=== PATIENT | female | born 1940 | race Caucasian/White ===

== ENCOUNTER 2019-08-09 20:18 | Inpatient (IN) ==
[2019-08-09] MEDS ORDERED: NS 1,000 ML IV ONE (20:28)
--- NOTE | 2019-08-09 21:26 | Diag Imaging Result Doc PS360 ---
EXAM: CHEST-PORTABLE - 08/09/2019 HISTORY: ams TECHNIQUE: Portable chest COMPARISON: 11/06/2018 FINDINGS: Heart size appears borderline enlarged. There are sternal wires from previous surgery again seen. There is been interval insertion of transvenous cardiac pacemaker. There is mild bilateral interstitial scarring. The lungs appear grossly clear of acute changes. There is no pleural effusion or pneumothorax identified. IMPRESSION: Borderline cardiomegaly. Mild interstitial scarring. No other evidence of acute disease. Electronically signed by Rush Handy 08/09/2019 9:24 PM
[2019-08-09] MEDS ORDERED: MAXIPIME 2 GM in NS 100 ML IV ONE (21:35)
--- NOTE | 2019-08-09 21:44 | EKG Report ---
Test Performed on : 08/09/2019 9:42:06 PM Test Reason : ams Blood Pressure : / mmHG Vent. Rate : 081 BPM Atrial Rate : 081 BPM P-R Int : 162 ms QRS Dur : 210 ms QT Int : 500 ms P-R-T Axes : 030 -73 069 degrees QTc Int : 580 ms Atrial-sensed ventricular-paced rhythm Abnormal ECG When compared with ECG of 26-SEP-2015 21:12, Electronic ventricular pacemaker has replaced Sinus rhythm. Unconfirmed Result
[2019-08-09 21:48] LABS: BASO# 0.02 X1000 (0.0-0.2); BASO% 0.2 % (0.0-0.8); EOS# 0.04 X1000 (0.0-0.7); EOS% 0.4 % (0.0-10.0); HEMATOCRIT 30.5 % (37.0-47.0); HEMOGLOBIN 9.5 g/dL (12.0-16.0); IMM GRAN# 0.07 X1000 (0.0-0.04); IMM GRAN% 0.6 % (0.0-0.5); LYMPH% 7.4 % (20.5-51.1); MCHC 31.1 g/dL (33-37); MCV 99.7 FL (81-99); MONO# 0.75 X1000 (0.11-0.59); MONO% 6.9 % (1.7-9.3); MPV 10.3 FL (7.4-10.4); NEUT# 9.12 X1000 (1.4-6.5); NEUT% 84.5 % (42.2-75.2); PLT 219 X1000 (130-400); RBC 3.06 XMIL (4.2-5.4); RDW 14.5 % (11.5-14.5)
[2019-08-09 21:59] LABS: INR 1.38; PROTIME 17.2 Seconds (11.0-16.0)
[2019-08-09 22:00] LABS: PTT 34.5 Seconds (22.3-41.8)
[2019-08-09 22:19] LABS: ALB/GLOB RATIO 1.4; ALBUMIN 3.6 g/dL (3.5-5.0); CALCIUM 8.7 mg/dL (8.8-10.2); CREATININE 1.2 mg/dL (0.5-0.9); POTASSIUM 4.3 mmol/L (3.5-5.1); TOTAL BILIRUBIN 0.53 mg/dL (0.20-1.00); TOTAL PROTEIN 6.1 g/dL (6.3-8.3)
[2019-08-09 22:25] LABS: URINE SOURCE CATH
[2019-08-09 22:47] LABS: BILIRUBIN URINE NEGATIVE (NEGATIVE); BLOOD URINE SMALL (NEGATIVE); COLOR YELLOW; GLUCOSE URINE NEGATIVE (NEGATIVE); KETONE URINE NEGATIVE (NEGATIVE); LEUKOCYTES URINE LARGE (NEGATIVE); NITRITE URINE POSITIVE (NEGATIVE); PH URINE 5.5; PROTEIN URINE TRACE mg/dL (NEGATIVE); SP GRAVITY URINE 1.015; TURBIDITY URINE HAZY (CLEAR); UROBILINOGEN URINE NORMAL (NORMAL)
[2019-08-09 22:50] LABS: UR EPITHELIAL CELLS <10 /HPF (<10); URINE BACTERIA 4+ /HPF; URINE RBC <10 /HPF (<10); URINE WBC TNTC /HPF (<10)
[2019-08-09] MEDS ORDERED: VANCOMYCIN IV PER PHARMACY MISC SCH (23:47)
[2019-08-09] MEDS ORDERED: XANAX PO PRN (23:47)
[2019-08-09] MEDS ORDERED: TYLENOL PO PRN (23:47)
[2019-08-10] MEDS: NORVASC PO SCH ×2 (00:19→21:41)
[2019-08-10] MEDS: COREG PO SCH ×3 (00:19→21:41)
[2019-08-10] MEDS ORDERED: VANCOMYCIN 2,100 MG in NS 500 ML IV ONE (01:00)
--- NOTE | 2019-08-10 01:16 | HISTORY AND PHYSICAL ---
PRIMARY CARE PHYSICIAN: Dr. Anthony Sánchez CHIEF COMPLAINT: Alteration of mental status/fever. HISTORY OF PRESENT ILLNESS: A 79-year-old white female with a complicated past medical history presents for evaluation of above-mentioned symptoms. Pertinent history of present illness began last week. On Sunday, patient was admitted to [facility] and taken for an elective TAVR intervention. The surgical intervention was deemed successful. Unfortunately, per family report she experienced an arrhythmia requiring a temporary pacemaker implantation. This remained through the weekend. In addition, patient also experienced an occlusion of an unknown vessel of the right lower extremity requiring angioplasty. Over the weekend, patient states she did reasonably well. A permanent pacemaker was placed on Sunday. She was discharged home on Sunday. Since being home, patient states she has felt reasonably well. She has noted a decrease in her shortness of breath since treatment of her aortic valve. She also has noted decreasing right lower extremity pain. She denied chest pains or palpitations associated. Home Health was initiated on Sunday. The patient did very well until this morning. At that time, patient awoke with a decrease in appetite. She complained of some pacemaker site pain, but no additional symptoms. By afternoon, patient developed chills requiring multiple blankets to keep warm. Her daughter took her temperature and it returned at 102.4. Thereafter, she noticed increasing work of breathing and some intermittent wheezing. Oxygen saturation was evaluated and returned in the 80s. Home O2 was placed. In addition to patient's pulmonary symptoms, a significant alteration of mental status was noted. I was contacted via phone. The patient's symptoms were described and she was instructed to go to the emergency department immediately. Upon arrival, a full evaluation was pursued. Urinalysis returned abnormal. Examination was also significant for a hematoma versus abscess to the right groin. The patient will be admitted to the hospital for full evaluation and management of each of these conditions. Of note, patient has a longstanding history of constipation which has been unchanged. She denies hematochezia, melena, diarrhea. She has chronic urinary incontinence. She denies dysuria, hematuria, or pyuria. She has, however, had some low back pain. She denies cough, congestion, or sinus tenderness. PAST MEDICAL HISTORY: 1. History of acute renal failure associated with congestive heart failure in 2017. 2. Chronic anemia secondary to renal failure. 3. Aortic stenosis status post TAVR. 4. Atrial fibrillation, treated successfully with amiodarone. 5. History of right breast cancer, status post right mastectomy in 2015. 6. Chronic left bundle branch block. 7. Ischemic heart disease status post coronary artery bypass grafting in 2006 and stent placement in 2010. 8. Congestive heart failure, systolic. 9. Depression. 10. Type 2 diabetes. 11. Chronic lower extremity edema. 12. Reflux disease. 13. Hypertension. 14. Hyperlipidemia. 15. Chronic hypoxemia requiring nocturnal oxygen. 16. Mild cognitive impairment. 17. Nephrolithiasis. 18. Obesity. 19. Osteoarthritis of bilateral knees. 20. History of a pancreatic cyst. 21. Postmenopausal state. 22. Hypothyroidism. 23. History of retinal artery occlusion in September 2015. 24. Urinary incontinence. 25. History of venous insufficiency. CURRENT MEDICATIONS: 1. Alprazolam 0.25 mg every 6 hours as needed. 2. Amiodarone 200 mg daily. 3. Amlodipine 5 mg at bedtime. 4. Anastrozole 1 mg daily. 5. Aspirin 81 mg daily. 6. Carvedilol 12.5 mg twice daily. 7. Clonazepam 0.5 mg at bedtime. 8. Iron sulfate 325 mg daily. 9. Folic acid 1 mg daily. 10. Lasix 40 mg daily as needed. 11. Glimepiride 4 mg daily. 12. Imdur 30 mg daily. 13. Levothyroxine 125 mcg 2 tablets daily. 14. Lisinopril 10 mg daily. 15. Pristiq 100 mg daily. 16. Tramadol 50 mg twice daily. 17. Vitamin D3 200 units daily. 18. Eliquis 5 mg twice daily. 19. Vitamin B12 1000 mcg daily. ALLERGIES: Patient states she is allergic to Crestor, Lipitor, lovastatin, penicillin, pravastatin, sulfa, and Zocor. SOCIAL HISTORY: Patient denies tobacco, alcohol or illicit drug use. She is a homemaker. She is unable to exercise routinely. FAMILY HISTORY: Patient's father passed at age 80 secondary to unknown causes. He had a history of coronary artery disease. Patient's mother passed at age 68 secondary to complications of an acute myocardial infarction. The patient's brother passed at age 63 secondary to complications of an abdominal aortic aneurysm. He had a history of lung cancer. A sister passed at age 80 secondary to complications of congestive heart failure. REVIEW OF SYSTEMS: A 12 point review of systems was performed. Pertinent positives and negatives are noted in the history present illness. PHYSICAL EXAMINATION: VITAL SIGNS: Temperature 100.8 degrees, heart rate 79, respirations 18, blood pressure is 208/97. O2 saturation 98% on 6 L of oxygen. GENERAL: Chronically ill appearing, confused, but no acute distress. HEENT: Normocephalic, atraumatic. Pupils equal, round, react to light. Extraocular muscles intact. Sclerae anicteric. [place] conjunctivae. Oral and nasopharynx clear without exudate. NECK: Supple. No lymphadenopathy. No thyromegaly. No bruits auscultated. CARDIOVASCULAR: Regular rate and rhythm. No significant murmurs, rubs, or gallops. PULMONARY: Minimal crackles at bases. Adequate air movement. ABDOMEN: Soft, nontender, nondistended. Positive bowel sounds. EXTREMITIES: Moves all extremities well. No significant clubbing or cyanosis. 1+ lower extremity edema bilaterally. NEUROLOGIC: Cranial nerves 2-12 grossly intact. Motor and sensory grossly intact. PSYCHOLOGIC: Patient is intermittently confused. DERMATOLOGIC: Evaluation reveals a large hematoma versus abscess to the right groin at the incision site with minimal drainage. LABORATORY DATA: White blood cell count 10.8, hemoglobin 9.5, hematocrit 30.5, platelet count is 219,000. PT 17.2, INR is 1.38. PTT 34.5. Sodium 143, potassium 4.3, chloride 103, bicarbonate 24, BUN 20, creatinine 1.2, glucose 140, calcium 8.7, total bilirubin 0.53, total protein 6.1, albumin 3.6, alkaline phosphatase 150, AST 26, ALT 24. CK total 45, troponin 0.031, proBNP 1791. Plasma lactate 1.9. Urinalysis reveals positive nitrite, large leukocytes, small amount of blood, too many to count white blood cells, 4+ bacteria. ASSESSMENT AND PLAN: A 79-year-old white female with a complicated past medical history as noted presents for evaluation of fevers and mental status change. Symptoms are in the setting of recent [place] TAVR intervention and subsequent pacemaker implantation. The patient will be admitted to the hospital for full evaluation and management. 1. Admit to ICU/ICU step-down. 2. Fever. Differential diagnosis is quite broad. Chest x-ray did not reveal a significant pneumonia. However, patient does have some increasing oxygen requirements suggesting a possibility of occult disease. Additionally, patient does have a significant urinary tract infection as well as examination concerning for possible right groin abscess at the access site for her TAVR. We will check blood cultures, urine cultures, and sputum cultures. We will empirically place patient on cefepime and vancomycin therapy. We will aggressively manage with the knowledge that patient is at high risk for complications associated with her pacemaker or TAVR should she become bacteremic. 3. Right groin abscess versus hematoma. This is at the access site for patient's TAVR. We will start patient on cefepime and vancomycin. As described above. We will refer patient for ultrasound evaluation. We will determine if surgical intervention is appropriate. 4. Alteration of mental status. This likely is associated with her febrile illness. There are no focal findings. We will treat as described above. Should this persist, we will need to consider CT scan evaluation. 5. Hypoxia. This is quite curious. Chest x-ray returned negative. As above, I cannot fully rule out an occult pneumonia, however, this seems less likely. We will place patient on oxygen per protocol. We will follow this. 6. Aortic stenosis. Patient is postoperative day #8 TAVR. We will consult Cardiology to confirm no further intervention is warranted. 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 7. Pacemaker implantation. Patient is postoperative day #5. Patient does have significant ecchymosis associated, but I do not appreciate any fluid collections. We will remain aware. We will follow patient on telemetry. 8. Profound weakness. The patient is unable to stand at present time. We will treat patient's acute issues as described above. We will plan to initiate physical therapy once able. I anticipate patient will require rehabilitation at discharge. 9. Hypertension. We will continue patient on home medications. 10. Diabetes. We will place patient on sliding scale insulin. 11. Anemia. We will remain aware. 12. Fluid, electrolytes, nutrition. We will monitor electrolytes. Normal saline at 50 mL an hour. Diabetic diet. 13. Prophylaxis. Patient will be continued on Eliquis therapy. cc: Anthony Sánchez MD MTDD
[2019-08-10] MEDS: NS 1,000 ML IV SCH ×2 (01:21→11:32)
--- NOTE | 2019-08-10 03:06 | EKG Report ---
Test Performed on : 08/10/2019 01:58:03 AM Test Reason : Bradycardia with pacemaker Blood Pressure : / mmHG Vent. Rate : 062 BPM Atrial Rate : 062 BPM P-R Int : 170 ms QRS Dur : 212 ms QT Int : 568 ms P-R-T Axes : 032 -73 055 degrees QTc Int : 576 ms AV dual-paced rhythm with frequent ventricular-paced complexes Abnormal ECG When compared with ECG of 09-AUG-2019 21:42, (Unconfirmed) Vent. rate has decreased BY 19 BPM Confirmed by [place] BOWSER, Mark ([id number]) on 08/12/2019 8:50:58 AM
[2019-08-10] MEDS: ATROVENT NEB INH SCH ×7 (03:14→23:19)
[2019-08-10] MEDS: HUMALOG SUBQ SCH ×4 (06:40→21:44)
[2019-08-10 08:51] LABS: BASO# 0.02 X1000 (0.0-0.2); BASO% 0.1 % (0.0-0.8); EOS# 0.01 X1000 (0.0-0.7); EOS% 0.1 % (0.0-10.0); HEMATOCRIT 27.7 % (37.0-47.0); HEMOGLOBIN 8.4 g/dL (12.0-16.0); IMM GRAN# 0.04 X1000 (0.0-0.04); IMM GRAN% 0.3 % (0.0-0.5); LYMPH# 2.04 X1000 (1.2-3.4); LYMPH% 13.5 % (20.5-51.1); MCH 30.9 PG (27-31); MCHC 30.3 g/dL (33-37); MCV 101.8 FL (81-99); MONO# 0.94 X1000 (0.11-0.59); MONO% 6.2 % (1.7-9.3); NEUT# 12.03 X1000 (1.4-6.5); NEUT% 79.8 % (42.2-75.2); PLT 195 X1000 (130-400); RBC 2.72 XMIL (4.2-5.4); RDW 14.8 % (11.5-14.5); WBC 15.08 X1000 (4.8-10.8)
[2019-08-10] MEDS ORDERED: ASPIRIN PO SCH (09:00)
[2019-08-10] MEDS ORDERED: NS 500 ML IV ONE (09:24)
[2019-08-10 09:44] LABS: ALB/GLOB RATIO 0.9; ALBUMIN 2.8 g/dL (3.5-5.0); CALCIUM 8.4 mg/dL (8.8-10.2); CREATININE 1.4 mg/dL (0.5-0.9); POTASSIUM 4.5 mmol/L (3.5-5.1); TOTAL BILIRUBIN 0.56 mg/dL (0.20-1.00); TOTAL PROTEIN 5.9 g/dL (6.3-8.3)
[2019-08-10] MEDS: VITAMIN D PO SCH (10:29)
[2019-08-10] MEDS: ULTRAM PO SCH ×2 (10:30→21:42)
[2019-08-10] MEDS: IMDUR PO SCH (10:33)
[2019-08-10] MEDS: ARIMIDEX PO SCH (10:33)
[2019-08-10] MEDS: CORDARONE PO SCH (10:34)
[2019-08-10] MEDS: FOLIC ACID PO SCH (10:34)
[2019-08-10] MEDS: ELIQUIS PO SCH ×2 (10:34→21:41)
[2019-08-10] MEDS: FERROUS SULFATE PO SCH (10:34)
--- NOTE | 2019-08-10 10:45 | Diag Imaging Result Doc PS360 ---
EXAM: US NON VASC EXTREMITY LIMITED HISTORY: Right groin hematoma vs. abscess v. Pseudoaneurysm TECHNIQUE: Right inguinal ultrasound COMPARISON: None. FINDINGS: There is a complex irregular area in the right inguinal region near the incision. This measures 2.1 x 5.7 x 3.7 cm. There is internal debris. The peripherally is irregular. Only one image shows flow near this. IMPRESSION: Irregular collection in the right inguinal region likely representing a hematoma or seroma Electronically signed by Sekou Sy 08/10/2019 10:42 AM
[2019-08-10] MEDS: PRINIVIL PO SCH (10:46)
[2019-08-10] MEDS ORDERED: ASPIRIN PO ONE (11:21)
[2019-08-10] MEDS: PRISTIQ ER PO SCH (11:31)
[2019-08-10] MEDS: MAXIPIME 2 GM in NS 100 ML IV SCH ×2 (11:32→23:37)
--- NOTE | 2019-08-10 12:35 | Diag Imaging Result Doc PS360 ---
EXAM: CT ABDOMEN/PELVIS W/O CONTRAST HISTORY: right groin abscess s/p TAVR procedure TECHNIQUE: CT abdomen and pelvis without contrast COMPARISON: 05/19/2019 FINDINGS: Trace pleural fluid. There is vascular distention and cardiomegaly. Sternal wires are present. Milk of calcium or sludge within the gallbladder similar to the prior exam. No focal hepatic abnormality identified on this noncontrasted exam. There are scattered splenic granuloma. No inflammation about the pancreas. Tiny pancreatic cyst is unchanged. Normal adrenal glands. There is a nonobstructing left lower pole renal stone. No hydronephrosis. No aortic aneurysm. Prominent atherosclerosis. There is a large amount of stool throughout the colon. No bowel obstruction. Normal appendix. No abscess. No ascites. A Ye catheter is in the urinary bladder. The uterus is been removed. No pelvic mass. There is edema and subcutaneous air in the right inguinal region. No well-defined fluid collection. IMPRESSION: 1.Cardiomegaly with pulmonary edema and trace pleural fluid 2.Sludge or milk of calcium within the gallbladder 3.Nonobstructing left renal stone 4.Prominent atherosclerosis 5.Prominent constipation 6.Hysterectomy 7.Subcutaneous air and edema in the right inguinal region apparently due to recent procedure. No well-defined fluid collection or abscess. This exam was performed using automated exposure control, adjustment of mA or kV according to patient size, and/or use of iterative reconstruction technique. Electronically signed by Sekou Sy 08/10/2019 12:32 PM
[2019-08-10] MEDS: SYNTHROID PO SCH (12:42)
--- NOTE | 2019-08-10 12:45 | PROGRESS NOTE ---
DATE: 08/10/2019 SUBJECTIVE: The patient was admitted yesterday with alteration of mental status and fever. Full evaluation was pursued. Laboratory data returned significant for an abnormal urinalysis. Examination was concerning for a right groin abscesses in the setting of recent TAVR. The patient was placed on broad-spectrum antibiotics, including cefepime and vancomycin therapy. She tolerated this well. This morning, upon my arrival, the patient's mentation had demonstrated improvement. She continued to have some discomfort in the right groin region. Evaluation revealed a persistent firmness with associated serous drainage. Ultrasound was performed, which suggested an irregular collection in the right inguinal region, likely representing a hematoma or seroma. Dr. Edmondson and Dr. Muro were consulted. Upon evaluation by Dr. Muro, the incision was opened, and approximately 200 to 300 mL of serous fluid was removed, suggesting a seroma. Underlying infection could not be ruled out. Otherwise, the patient's fever has defervesced over the first 12 hours of hospitalization. She denies nausea, vomiting, shortness of breath, or chest discomfort. She continues to require oxygen to maintain adequate saturations. OBJECTIVE: Vital Signs: T-max 100.8 degrees, heart rate 60 to 79, respirations 17 to 24, blood pressure 99 to 208/43 to 97. General: Chronically ill appearing. No acute distress. Cardiovascular: Regular rate and rhythm. No significant murmurs, rubs, or gallops. Pulmonary: Clear to auscultation anteriorly. Abdomen: Soft, nontender, nondistended. Positive bowel sounds. Extremities: Moves all extremities well. There is 1+ to 2+ lower extremity edema bilaterally. Dermatologic: Reveals a right groin wound with serous discharge. LABORATORY DATA: White blood cell count 15.08, hemoglobin 8.4, hematocrit 27.7, platelet count 195,000. Sodium 144, potassium 4.5, chloride 105, bicarb 24, BUN 25, creatinine 1.4, glucose 133, calcium 8.4. Total bilirubin 0.56, total protein 5.9, albumin 2.8, alkaline phosphatase 121, AST 21, ALT 20. ASSESSMENT AND PLAN: 1. Fever. At this point, likely etiologies include urinary tract infection and infected seroma. I cannot fully rule out underlying pneumonia as well. We will continue the patient on cefepime and vancomycin therapy. Blood cultures, urine cultures, and sputum cultures have been pursued. We will check a wound culture as well. We will request records from [facility] to confirm that no surgical hardware is present in the right groin. 2. Right groin abscess versus seroma. As above, the patient had 200 to 300 mL drained this morning. We will check a wound culture. We will continue cefepime and vancomycin. I appreciate Dr. Muro's consultation. 3. Alteration of mental status. This likely was associated with her febrile illness. Today, she is back to baseline. We will continue treatment of potential infections as described above. 4. Hypoxia. Chest x-ray returned without significant abnormality. As above, I cannot fully rule out an occult pneumonia. However, she does have 2 additional etiologies for infection. We will continue oxygen per protocol. We will encourage aspiration precautions and incentive spirometry. 5. Aortic stenosis. The patient is postoperative day #9, transcatheter aortic valve replacement. I appreciate Dr. Edmondson's consultation. At this point, she does appear to have a functioning valve. She does, however, have an operative complication as described above. 6. Pacemaker implantation. The patient is postoperative day #6. This also appears to be functioning appropriately. We will continue to follow the patient with telemetry. 7. Profound weakness. This is of significant consequence. With her current seroma, she is unable to ambulate. I anticipate that the patient will require rehabilitation at discharge. We will plan to initiate physical therapy once able. 8. Hypertension. We will continue the patient on home medications. 9. Diabetes. We will continue the patient on sliding scale insulin. 10. Anemia. The patient's hemoglobin and hematocrit have dropped from yesterday. Certainly, this may be dilutional. I cannot rule out an underlying bleed associated with her previous surgery as well. We will recheck levels in the morning. We will follow this. We will remain aware that she is being treated with Eliquis therapy. 11. Disposition. At this point, the patient continues to require detention care in a hospital setting. We will plan discharge home once appropriate. cc: Anthony Sánchez MD
--- NOTE | 2019-08-10 14:18 | GENERAL SURGERY CONSULTATION ---
DATE: 08/10/2019 REASON FOR CONSULTATION: Drainage from the right groin wound. HISTORY OF PRESENT ILLNESS: This is a 79-year-old female who is recently status post TAVR procedure at [facility]. Apparently, there was some vascular issue postoperatively requiring intervention to the right lower extremity. She also had a pacemaker placed. She was discharged. She develops fever, increased work of breathing, and fatigue. She was noted to have drainage from her right groin, and I was consulted. She did not have any pain in her right leg. PAST MEDICAL HISTORY: 1. Aortic stenosis, status post TAVR procedure. 2. Atrial fibrillation. 3. Arrhythmia with pacemaker placed. 4. Ischemic heart disease, status post coronary artery bypass grafting and stent placement. 5. Congestive heart failure. 6. Depression. 7. Hypertension. 8. Diabetes. 9. Hyperlipidemia. 10. Chronic edema. 11. Chronic hypoxia. 12. Cognitive impairment. 13. Obesity. 14. Hypothyroidism. 15. Renal artery occlusion. 16. Urinary incontinence. MEDICATION LIST: Includes 19 medications, and Eliquis, as well as Lasix and several antiarrhythmics. SOCIAL HISTORY: No current tobacco, alcohol, or drugs. FAMILY HISTORY: Reviewed. She does have cardiac disease in her family. REVIEW OF SYSTEMS: A 10-point review of systems is negative other than what is mentioned in her HPI. OBJECTIVE: Vital Signs: She is afebrile, pulse 60, blood pressure 150/62, oxygen saturation 99% on 3 L. General: She is alert, chronically ill-appearing, but in no acute distress. HEENT: No scleral icterus. No cervical mass. Cardiovascular: Normal rate. Pulmonary: No increased work of breathing. Abdomen: Obese, soft, nontender. Integument: Warm, dry. Peripheral Vascular: She has bilateral lower extremity, but otherwise well perfused. Musculoskeletal: She has a right groin incision that is draining murky serous fluid from the medial aspect of her incision. I did not see any pulsatile masses. No bleeding. Psychiatric: Appropriate affect. Neurologic: Generalized weakness. IMAGING AND LABORATORY DATA: White count 15, hematocrit 27. Creatinine is 1.4, glucose is mildly elevated. LFTs are normal, with the exception of a mild elevation of alkaline phosphatase. She does have leukocytes and nitrates noted on UA. I reviewed a lower extremity ultrasound that shows an irregular fluid collection, but no evidence of Doppler flow to suggest pseudoaneurysm. ASSESSMENT AND PLAN: A 79-year-old female status post transcatheter aortic valve replacement procedure within the past week. She had some vascular intervention, presumably in her right lower extremity, but we are unclear of the details of this. I drained several hundred milliliters of purulent serous fluid from her right groin, and feel that this is adequately drained at this time. We are attempting to obtain operative records. I do worry that she has prosthetic material that would be infected. She is on appropriate antibiotics. Will continue to follow along. cc: MD Anthony Sarmiento MD MTDD
--- NOTE | 2019-08-10 17:01 | CARDIOLOGY CONSULTATION ---
DATE: 08/10/2019 REQUESTING SERVICE: Dr. Anthony Sánchez. REASON: Patient just had a TAVR procedure, possibly vascular complication of the right groin postprocedure. HISTORY: Mrs. Bazan is a 79-year-old female who is established patient of Dr. Palomo Anne from the [facility]. She had been referred to the [facility] service for TAVR. The patient underwent that procedure on August 02. Following the procedure, she required a pacemaker implantation. Also the patient the day after the procedure complained of having a numb right leg. It was essentially paralyzed. They had to take her emergently to the OR to re-perfuse the right femoral vessels. Apparently, the right femoral artery was completely clotted off. After those procedures were carried out, she was discharged home I believe on August 05 or . Since then, the patient while being at home, developed chills, fever, and mental status changes with confusion/delirium and she had to be brought to the emergency room emergently last night at 8 p.m. or 8:30 p.m. They did a chest x-ray that showed borderline cardiomegaly, mild interstitial scarring. They did an EKG that shows activity of a dual-chamber pacemaker. They did blood work that showed a white cell count of 10,800 and then subsequently 15,080. Her hemoglobin initially 9.5, then has dropped to 8.4%. The patient has been placed on antibiotics because of suspected infection. She complained of swelling and pain of the right groin and Dr. Sánchez noted that there was some leakage of yellowish fluid off of the wound of the right groin. The patient at this time has already been evaluated by Dr. Brenden Muro who has drained what appears to be a seroma of the right femoral access site and the patient is already on antibiotics. She has been on antibiotics since last night and this morning or this afternoon she is mentating normally. Her daughter is at the bedside. PAST HISTORY: Positive for coronary heart disease. She has aortic stenosis that was just treated. She also has a history of paroxysmal atrial fibrillation. She has hypertension, hyperlipidemia. She is almost morbidly obese and has significantly impaired functional status because of chronic back pain and chronic knee pain. She has acid reflux and diabetes mellitus type 2. SURGICAL HISTORY: Prior CABG in 2006. Stent in 2010. Also Positive for the recent TAVR which became complicated by the occlusion of the right femoral artery requiring emergency surgery. Then she received a dual- chamber pacemaker. She also has had issues with kidney stones in the past. HOME MEDICATIONS: At the time of this admission is a long list including amiodarone 200 mg daily, anastrozole 1 mg daily, apixaban 5 mg twice a day, aspirin 81 daily, carvedilol 12.5 twice a day, vitamin D3 2000 units daily, clonazepam 0.5 mg daily, Pristiq ER 100 mg daily, furosemide 40 mg daily, ferrous sulfate 325 daily, folic acid 1 mg daily, levothyroxine 125 mcg daily, lisinopril 40 mg once a day, VESIcare, tramadol, Co-Q10. ALLERGIES: She is allergic to penicillin, sulfa drugs and Levaquin. REVIEW OF SYSTEMS: She has significantly impaired functional capacity. Also, she has cognitive impairment. She is not having any chest pains at this time. The aortic stenosis has been followed periodically by Dr. Anne. Of note, a heart catheterization that was performed in December 2016 that is available for review in the [facility] image system indicates that her mammary graft to LAD was patent. Vein graft to right coronary artery was patent and a vein graft to what appears to be a diagonal branch of the LAD was also patent. Her circumflex system was patent without stenosis. Her LAD was occluded. Her right coronary artery was occluded. EF 2-1/2 years ago was 50% with apical hypokinesis. PHYSICAL EXAMINATION: Blood pressure 150/62, temperature 97.8 degrees, pulse 60, respirations 18. She is awake, follows commands, very pale. She has a bruise on the right side of the chest, also around the left side where the pacemaker is. This is a fair amount of ecchymosis. She has significant edema of the thighs, especially the right thigh. She is morbidly obese.Chest: Shows diminished breath sounds without obvious rales. Heart: Sounds are regular and rhythmic. She does have a systolic murmur over aortic area of about 2/6. Abdomen: Obese. Pulses distally are palpable, diminished. Neurological: Follows commands. Moves 4 extremities. IMPRESSION: 1. Patient who has undergone successful transcatheter aortic valve replacement at [facility] about 8 days ago complicated by the development of advanced heart block requiring DDD pacemaker. 2. 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 3. Seroma of the right femoral access site. 4. Morbid obesity. 5. Hypertension. 6. Diabetes mellitus type 2. 7. Hypothyroidism. RECOMMENDATIONS: From a cardiac viewpoint, I really do not have any further recommendations. The patient seems to be stable. I would suggest to consult Infectious Disease and let vascular surgery follow the patient closely since this is a vascular complication. Upon discharge, the patient already has an appointment to see the [facility] team and also she has an appointment to follow up with the [facility] [facility] in [place]. cc: MD Anthony Soto MD MTDKelby
[2019-08-10] MEDS: KLONOPIN PO SCH (21:40)
[2019-08-11] MEDS: VANCOMYCIN 1,400 MG in NS 250 ML IV SCH (00:27)
[2019-08-11] MEDS: NS 1,000 ML IV SCH ×3 (01:23→15:42)
[2019-08-11] MEDS: ATROVENT NEB INH SCH ×6 (03:27→22:52)
[2019-08-11 06:30] LABS: BASO# 0.01 X1000 (0.0-0.2); BASO% 0.1 % (0.0-0.8); EOS# 0.14 X1000 (0.0-0.7); EOS% 1.9 % (0.0-10.0); HEMATOCRIT 23.6 % (37.0-47.0); HEMOGLOBIN 7.2 g/dL (12.0-16.0); IMM GRAN# 0.03 X1000 (0.0-0.04); IMM GRAN% 0.4 % (0.0-0.5); LYMPH# 1.35 X1000 (1.2-3.4); LYMPH% 18.4 % (20.5-51.1); MCHC 30.5 g/dL (33-37); MCV 101.7 FL (81-99); MONO# 0.37 X1000 (0.11-0.59); MONO% 5.1 % (1.7-9.3); MPV 10.4 FL (7.4-10.4); NEUT# 5.42 X1000 (1.4-6.5); NEUT% 74.1 % (42.2-75.2); PLT 150 X1000 (130-400); RBC 2.32 XMIL (4.2-5.4); RDW 14.7 % (11.5-14.5); WBC 7.32 X1000 (4.8-10.8)
[2019-08-11 06:40] LABS: ALB/GLOB RATIO 0.9; ALBUMIN 2.6 g/dL (3.5-5.0); CALCIUM 8.3 mg/dL (8.8-10.2); CREATININE 1.4 mg/dL (0.5-0.9); POTASSIUM 3.9 mmol/L (3.5-5.1); TOTAL BILIRUBIN 0.38 mg/dL (0.20-1.00); TOTAL PROTEIN 5.6 g/dL (6.3-8.3)
[2019-08-11] MEDS: HUMALOG SUBQ SCH ×4 (07:07→20:35)
[2019-08-11] MEDS: ULTRAM PO SCH ×2 (08:47→20:34)
[2019-08-11] MEDS: ARIMIDEX PO SCH (08:47)
[2019-08-11] MEDS: PRISTIQ ER PO SCH (08:48)
[2019-08-11] MEDS: FERROUS SULFATE PO SCH (08:48)
[2019-08-11] MEDS: VITAMIN D PO SCH (08:48)
[2019-08-11] MEDS: COREG PO SCH ×2 (08:48→20:35)
[2019-08-11] MEDS: ASPIRIN EC PO SCH (08:48)
[2019-08-11] MEDS: SYNTHROID PO SCH (08:48)
[2019-08-11] MEDS: ELIQUIS PO SCH ×2 (08:48→20:35)
[2019-08-11] MEDS: FOLIC ACID PO SCH (08:48)
[2019-08-11] MEDS: CORDARONE PO SCH (08:48)
[2019-08-11] MEDS ORDERED: ASPIRIN EC PO SCH (09:00)
[2019-08-11] MEDS: PRINIVIL PO SCH (11:17)
[2019-08-11] MEDS: MAXIPIME 2 GM in NS 100 ML IV SCH ×2 (11:17→23:05)
[2019-08-11] MEDS: IMDUR PO SCH (11:17)
--- NOTE | 2019-08-11 20:28 | PROGRESS NOTE ---
DATE: 08/11/2019 SUBJECTIVE: Upon my arrival this morning, patient stated she felt reasonably well. Mental status remained at baseline. She continued to have considerable fatigue. Through the day today, patient denies significant symptoms. She was assisted, although with significant help, to a chair this evening. Her p.o. intake remains marginal. There has been no evidence of fevers, chills, nausea, vomiting, shortness of breath, or chest discomfort. She continues to have some serous drainage from her right groin incision. OBJECTIVE: Vital signs: T-max 98.3 degrees, heart rate 62 to 68, respirations 14 to 25, blood pressure 115 to 168 over 49 to 59. General: Chronically ill appearing, no acute distress. Cardiovascular: Regular rate and rhythm. No significant rubs or gallops. 3/6 systolic murmur noted at the right upper sternal border. Pulmonary: Clear to auscultation. Abdomen: Soft, nontender, and nondistended. Positive bowel sounds. Extremities: Moves all extremities well. No significant clubbing, cyanosis, or edema. Dermatologic: Evaluation reveals no evidence of rash. Right groin incision is dressed. LABORATORY DATA: White blood cell count 7.32, hemoglobin 7.2, hematocrit 23.6, platelet count 150,000. Sodium 143, potassium 3.9, chloride 109, bicarb 24, BUN 30, creatinine 1.4, glucose 68, calcium 8.3, total bilirubin 0.3, total protein 5.6, albumin 2.6, alkaline phosphatase 95, AST 16, ALT 16. ASSESSMENT AND PLAN: 1. Fever. The patient's urine culture has revealed a gram-negative osman. Culture from the seroma also has revealed a gram-negative osman. At this point, with improvement in her condition, I suspect we have adequate coverage with cefepime and vancomycin therapy. We will continue each of these and follow cultures and determine if changing medications is most appropriate. 2. Right groin abscess versus seroma. As previously noted, patient had 200 to 300 mL drained yesterday morning. Wound cultures are pending as described above. I appreciate Dr. Muro's consultation. She continues to have some drainage at this site currently. 3. Alteration of mental status. Patient has achieved resolution. This likely was a consequence of her underlying infection. 4. Hypoxia. We will continue patient on oxygen per protocol. We will encourage incentive spirometry and aspiration precautions. 5. Aortic stenosis. Patient is postoperative day #10 transcatheter aortic valve replacement. Thus far, there has been no evidence of cardiac complications. She has had a complication with the right groin seroma as noted above. 6. Pacemaker implantation. Patient is postoperative day #7. This continues to appear to be functioning appropriately. 7. Profound weakness. This is significant. The patient required significant assistance to transfer to a chair. Once patient's overall condition has improved, we will plan transfer to rehabilitation. 8. Hypertension. We will continue patient on home medications. 9. Diabetes. We will continue sliding scale insulin. 10. Anemia. This is quite interesting. Patient's blood levels have dropped considerably. While I suspect dilutional etiology is playing a role, I cannot fully explain the degree of decrease. In the setting of an elevated BUN, gastrointestinal loss is to be considered; however, she had a documented formed stool without evidence of melena or hematochezia. We will recheck levels in the morning. We will determine if transfusion is appropriate. She remains asymptomatic. She is treated with Eliquis therapy. 11. Disposition. At this point, patient continues to require [facility] care in a hospital setting. We will plan discharge home once appropriate. cc: Anthony Sánchez MD
[2019-08-11] MEDS: NORVASC PO SCH (20:34)
[2019-08-11] MEDS: KLONOPIN PO SCH (20:35)
--- NOTE | 2019-08-11 21:26 | GENERAL SURGERY PROGRESS NOTE ---
DATE: 08/11/2019 SUBJECTIVE: She seems to be doing better. Less drainage from her groin. Feels a lot better, too, less painful, less distended. No fevers documented. OBJECTIVE: Vital signs: Pulse 63, blood pressure 137/52. General: She is alert. Cardiovascular: Normal rate. Skin: Her right groin is flat. Incision is intact without cellulitis. There is minimal serous drainage. Extremities: Her lower extremities otherwise well perfused. LABS: White count is count 7, hematocrit is 23. Creatinine is 1.4. ASSESSMENT AND PLAN: 79-year-old female who is status post transcatheter aortic valve replacement procedure. She developed a seroma in the right groin. She also had some vascular repair. We do not know the details of this. I am awaiting her records. Otherwise, we will continue local wound care. If this seroma persists, she may ultimately need opening of the wound and wound vacuum assisted closure management, but we will monitor. cc: MD Anthony Sarmiento MD
[2019-08-12] MEDS: VANCOMYCIN 1,400 MG in NS 250 ML IV SCH (00:48)
[2019-08-12] MEDS: ATROVENT NEB INH SCH ×6 (03:50→23:05)
[2019-08-12 06:20] LABS: BASO# 0.01 X1000 (0.0-0.2); BASO% 0.2 % (0.0-0.8); EOS# 0.15 X1000 (0.0-0.7); EOS% 2.7 % (0.0-10.0); HEMOGLOBIN 7.3 g/dL (12.0-16.0); LYMPH% 21.6 % (20.5-51.1); MCH 30.5 PG (27-31); MCHC 30.4 g/dL (33-37); MCV 100.4 FL (81-99); MONO# 0.29 X1000 (0.11-0.59); MONO% 5.2 % (1.7-9.3); MPV 10.1 FL (7.4-10.4); NEUT# 3.91 X1000 (1.4-6.5); NEUT% 70.3 % (42.2-75.2); PLT 169 X1000 (130-400); RBC 2.39 XMIL (4.2-5.4); RDW 14.3 % (11.5-14.5); WBC 5.56 X1000 (4.8-10.8)
[2019-08-12 06:35] LABS: ALB/GLOB RATIO 0.9; ALBUMIN 2.7 g/dL (3.5-5.0); CALCIUM 8.1 mg/dL (8.8-10.2); POTASSIUM 4.2 mmol/L (3.5-5.1); TOTAL BILIRUBIN 0.41 mg/dL (0.20-1.00); TOTAL PROTEIN 5.6 g/dL (6.3-8.3)
[2019-08-12] MEDS: HUMALOG SUBQ SCH ×4 (08:00→20:53)
[2019-08-12] MEDS: SYNTHROID PO SCH (09:02)
[2019-08-12] MEDS: PRISTIQ ER PO SCH (09:02)
[2019-08-12] MEDS: ARIMIDEX PO SCH (09:02)
[2019-08-12] MEDS: VITAMIN D PO SCH (09:02)
[2019-08-12] MEDS: CORDARONE PO SCH (09:03)
[2019-08-12] MEDS: PRINIVIL PO SCH (09:03)
[2019-08-12] MEDS: ELIQUIS PO SCH ×2 (09:03→20:54)
[2019-08-12] MEDS: COREG PO SCH ×2 (09:03→20:54)
[2019-08-12] MEDS: ULTRAM PO SCH ×2 (09:03→20:54)
[2019-08-12] MEDS: IMDUR PO SCH (09:03)
[2019-08-12] MEDS: ASPIRIN EC PO SCH (09:03)
[2019-08-12] MEDS: FERROUS SULFATE PO SCH (09:03)
[2019-08-12] MEDS: FOLIC ACID PO SCH (09:03)
[2019-08-12] MEDS: MAXIPIME 2 GM in NS 100 ML IV SCH ×2 (11:20→23:37)
[2019-08-12] MEDS: KLONOPIN PO SCH (20:54)
[2019-08-12] MEDS: NORVASC PO SCH (20:55)
--- NOTE | 2019-08-12 21:09 | PROGRESS NOTE ---
DATE: 08/12/2019 SUBJECTIVE: Upon my arrival this morning, patient was sitting upright in bed. Overall, she states she had a good night. Throughout the day, patient states she continued to feel improved. The patient was assisted to the chair by Physical Therapy. She notes her strength to be improving. She unfortunately continues to have significant drainage from her right groin seroma. She denies fevers, chills, nausea, vomiting, shortness of breath, or chest discomfort. OBJECTIVE: T-max 98.7 degrees, heart rate 61 to 70, respirations 14 to 18, blood pressure 152 to 201 over 50 to 62.General: Chronically ill-appearing, no acute distress. Cardiovascular: Regular rate and rhythm. No significant murmurs, rubs, or gallops. Pulmonary: Clear to auscultation bilaterally. Abdomen: Soft, nontender, nondistended. Positive bowel sounds. Extremities: Moves all extremities well. Trace to 1+ lower extremity edema bilaterally. Dermatologic: Evaluation reveals a dressed right groin wound. LABORATORY DATA: White blood cell count 5.56, hemoglobin 7.3, hematocrit 24.0, platelet count 169,000. Sodium 143, potassium 4.2, chloride 108, bicarb 23, BUN 12, creatinine 1.0, glucose 82, calcium 8.1, total bilirubin 0.41, total protein 5.6, albumin 2.7, alkaline phosphatase 91, AST 13, ALT 13. ASSESSMENT AND PLAN: 1. Fever-patient's urine culture and seroma culture have returned positive for Escherichia coli. Sensitivities are similar. The question is raised whether this was a contaminant from being incontinent. At this point, regardless, aggressive intervention will be continued. Vancomycin will be discontinued. We will continue cefepime for now. We will continue transitioning over to oral medication once appropriate. 2. Right groin abscess versus seroma-as above, patient continues to have considerable drainage. Cultures grew Escherichia coli. We will continue treatment as above. 3. Alteration of mental status-patient has achieved improvement with treatment of her underlying infection. 4. Hypoxia-we will continue patient on oxygen per protocol. 5. Aortic stenosis-patient is postoperative day #11 transcatheter aortic valve replacement. Thus far, there have been no significant cardiac complications with exception of her right groin seroma. 6. Pacemaker implantation-patient is postoperative day #8. Per telemetry, this is functioning appropriately. 7. Profound weakness-the patient has achieved some improvement while hospitalized. We will continue physical therapy. She likely will require rehabilitation at discharge. 8. Hypertension-we will continue patient on home medications. 9. Diabetes-we will continue patient on sliding scale insulin. 10. Anemia-there has been no evidence of active blood loss. Hemoglobin, hematocrit remain marginal. We will recheck levels in the morning. We will determine if transfusion is appropriate. 11. Disposition-at this point, patient continues to require senior care care in a hospital setting. We will plan discharge home once appropriate. cc: Anthony Sánchez MD
--- NOTE | 2019-08-12 21:44 | GENERAL SURGERY PROGRESS NOTE ---
DATE: 08/12/2019 SUBJECTIVE: Feels okay. She is more alert. She is breathing well. Still some drainage from her wound, but overall no pain. I do not see any fevers documented. No tachycardia. Her right groin incision has some serous drainage from the medial aspect, but otherwise, no necrosis, no swelling, no cellulitis. Creatinine is down to 1, glucose 166. White count is normal. ASSESSMENT AND PLAN: A 79-year-old female with infected seroma of the right groin, status post transcatheter aortic valve replacement procedure. Overall, she is doing well. Continue on antibiotics. I do not think she needs any more surgical drainage of this. I will follow along. She has been treated for a urinary tract infection and believe a pneumonia as well. cc: MD Anthony Sarmiento MD
[2019-08-13] MEDS: ATROVENT NEB INH SCH ×6 (03:27→23:12)
[2019-08-13 06:16] LABS: BASO# 0.01 X1000 (0.0-0.2); BASO% 0.2 % (0.0-0.8); EOS# 0.13 X1000 (0.0-0.7); EOS% 2.7 % (0.0-10.0); HEMATOCRIT 24.9 % (37.0-47.0); HEMOGLOBIN 7.8 g/dL (12.0-16.0); IMM GRAN# 0.02 X1000 (0.0-0.04); IMM GRAN% 0.4 % (0.0-0.5); LYMPH# 1.11 X1000 (1.2-3.4); LYMPH% 23.4 % (20.5-51.1); MCH 31.2 PG (27-31); MCHC 31.3 g/dL (33-37); MCV 99.6 FL (81-99); MONO# 0.39 X1000 (0.11-0.59); MONO% 8.2 % (1.7-9.3); MPV 10.3 FL (7.4-10.4); NEUT# 3.08 X1000 (1.4-6.5); NEUT% 65.1 % (42.2-75.2); PLT 179 X1000 (130-400); RDW 14.2 % (11.5-14.5); WBC 4.74 X1000 (4.8-10.8)
[2019-08-13] MEDS: HUMALOG SUBQ SCH ×4 (06:51→20:57)
[2019-08-13] MEDS: IMDUR PO SCH (08:42)
[2019-08-13] MEDS: ELIQUIS PO SCH ×2 (08:42→20:58)
[2019-08-13] MEDS: ASPIRIN EC PO SCH (08:42)
[2019-08-13] MEDS: ULTRAM PO SCH ×2 (08:42→20:58)
[2019-08-13] MEDS: COREG PO SCH ×2 (08:42→20:58)
[2019-08-13] MEDS: FERROUS SULFATE PO SCH (08:42)
[2019-08-13] MEDS: VITAMIN D PO SCH (08:43)
[2019-08-13] MEDS: SYNTHROID PO SCH (08:43)
[2019-08-13] MEDS: FOLIC ACID PO SCH (08:43)
[2019-08-13] MEDS: PRINIVIL PO SCH (08:43)
[2019-08-13] MEDS: CORDARONE PO SCH (08:43)
[2019-08-13] MEDS: ARIMIDEX PO SCH (08:43)
[2019-08-13] MEDS: PRISTIQ ER PO SCH (08:43)
[2019-08-13] MEDS: MAXIPIME 2 GM in NS 100 ML IV SCH ×2 (11:46→22:14)
--- NOTE | 2019-08-13 14:21 | GENERAL SURGERY PROGRESS NOTE ---
DATE: 08/13/2019 SUBJECTIVE: No new fevers overnight. No tachycardia. She feels okay. The groin wound is still draining serous fluid. White count is 4, hematocrit is 24. PHYSICAL EXAMINATION: General: On exam, she is alert. Cardiovascular: Normal rate. Pulmonary: No increased work of breathing. Abdomen: Obese but soft, nontender. Her right groin shows no cellulitis but persistent serous, now nonpurulent drainage. ASSESSMENT AND PLAN: A 79-year-old female status post TAVR procedure with a vascular complication of right groin and a seroma in her surgical site. This was infected but has been adequately drained. We will continue dressing changes here. These seromas can be difficult to resolve but ultimately, they do. Otherwise, we will defer management to the Medical Service. cc: MD Anthony Sarmiento MD
[2019-08-13] MEDS: NORVASC PO SCH (20:58)
[2019-08-13] MEDS: KLONOPIN PO SCH (20:59)
[2019-08-14] MEDS: ATROVENT NEB INH SCH ×6 (03:40→23:36)
[2019-08-14 06:06] LABS: BASO# 0.01 X1000 (0.0-0.2); BASO% 0.2 % (0.0-0.8); EOS# 0.18 X1000 (0.0-0.7); EOS% 3.9 % (0.0-10.0); HEMATOCRIT 25.3 % (37.0-47.0); HEMOGLOBIN 7.7 g/dL (12.0-16.0); IMM GRAN# 0.04 X1000 (0.0-0.04); IMM GRAN% 0.9 % (0.0-0.5); LYMPH# 1.32 X1000 (1.2-3.4); LYMPH% 28.5 % (20.5-51.1); MCH 30.1 PG (27-31); MCHC 30.4 g/dL (33-37); MCV 98.8 FL (81-99); MONO# 0.34 X1000 (0.11-0.59); MONO% 7.3 % (1.7-9.3); NEUT# 2.74 X1000 (1.4-6.5); NEUT% 59.2 % (42.2-75.2); PLT 206 X1000 (130-400); RBC 2.56 XMIL (4.2-5.4); RDW 13.8 % (11.5-14.5); WBC 4.63 X1000 (4.8-10.8)
[2019-08-14] MEDS: HUMALOG SUBQ SCH ×4 (06:29→22:08)
--- NOTE | 2019-08-14 06:40 | PROGRESS NOTE ---
DATE: 08/13/2019 SUBJECTIVE: Upon my arrival this morning, patient was sitting upright in bed. Overall, she states she rested well. Throughout the day, the patient continued to demonstrate improvement. She worked with physical therapy. She was up in a chair for several hours today. She denies fevers, chills, nausea, vomiting, shortness of breath, or chest discomfort. OBJECTIVE: Vital Signs: T max 98.4, heart rate 60 to 70, respirations 15 to 18, blood pressure 147-218/54 to 69. General: Well nourished, well developed in no acute distress. Cardiovascular: Regular rate and rhythm. No significant rubs or gallops. 3/6 systolic murmur noted at the right upper sternal border. Pulmonary: Clear to auscultation bilaterally. Abdomen: Soft, nontender, nondistended. Positive bowel sounds. Extremities: Moves all extremities well. No significant clubbing, cyanosis, or edema. Dermatologic: Evaluation reveals no evidence of rash. LABORATORY DATA: White blood cell count 4.74, hemoglobin 7.8, hematocrit 24.9, and platelet count 179,000. ASSESSMENT AND PLAN: 1. Fever-Urine and seroma cultures both returned positive for E. Coli. The patient is being treated with cefepime therapy. We will continue this for now. Symptoms are improving. 2. Right groin abscess versus infected seroma-The patient is status post drainage by Dr. Muro. The culture grew Escherichia coli. She is treated with cefepime as noted above. 3. Alteration of mental status-This likely was a consequence of her underlying infection. She has achieved improvement with treatment. 4. Hypoxia-We will continue oxygen per protocol. 5. Aortic stenosis-Patient is postoperative day #12 Transcatheter aortic valve replacement. We will remain aware. 6. Pacemaker implantation-Patient is postoperative day #9. This appears to be functioning appropriately. 7. Profound weakness- We will continue patient on physical therapy. We will plan rehabilitation at discharge. 8. Hypertension-Blood pressure remains elevated. We will continue her home medications for now. We will consider titration while hospitalized. 9. Anemia-Patient does have a considerable anemia, although this remains stable. At this point, she does not reach criteria for transfusion. 10. Disposition. At this point, patient continues to require alf care in a hospital setting. We will plan discharge home once appropriate. cc: Anthony Sánchez MD
[2019-08-14] MEDS: ULTRAM PO SCH ×2 (08:15→20:23)
[2019-08-14] MEDS: IMDUR PO SCH (08:16)
[2019-08-14] MEDS: ELIQUIS PO SCH ×2 (08:16→20:23)
[2019-08-14] MEDS: ARIMIDEX PO SCH (08:16)
[2019-08-14] MEDS: CORDARONE PO SCH (08:16)
[2019-08-14] MEDS: PRISTIQ ER PO SCH (08:16)
[2019-08-14] MEDS: SYNTHROID PO SCH (08:16)
[2019-08-14] MEDS: ASPIRIN EC PO SCH (08:17)
[2019-08-14] MEDS: VITAMIN D PO SCH (08:17)
[2019-08-14] MEDS: FOLIC ACID PO SCH (08:17)
[2019-08-14] MEDS: FERROUS SULFATE PO SCH (08:17)
[2019-08-14] MEDS: PRINIVIL PO SCH ×2 (08:17→22:34)
[2019-08-14] MEDS: COREG PO SCH ×2 (08:17→20:23)
[2019-08-14] MEDS: MAXIPIME 2 GM in NS 100 ML IV SCH ×2 (11:17→22:34)
[2019-08-14] MEDS: KLONOPIN PO SCH (20:23)
[2019-08-14] MEDS: NORVASC PO SCH (20:23)
--- NOTE | 2019-08-15 02:33 | GENERAL SURGERY PROGRESS NOTE ---
DATE: 08/14/2019 SUBJECTIVE: She has less drainage. She is sitting in the chair. No fevers. OBJECTIVE: Vital Signs: Pulse 60, blood pressure 189/57. General: She is alert. She is sitting in the chair. LABORATORY DATA: White count is 4, hematocrit is 25. ASSESSMENT AND PLAN: A 79-year-old female with seroma of the right groin status post TAVR procedure. Persistent serous drainage, no evidence of ongoing infection. Continue dressing changes, observation. Ultimately the seroma will resolve, but they can be slow. cc: MD Anthony Sarmiento MD
[2019-08-15] MEDS: ATROVENT NEB INH SCH ×4 (03:49→15:15)
[2019-08-15 06:24] LABS: BASO# 0.02 X1000 (0.0-0.2); BASO% 0.4 % (0.0-0.8); EOS# 0.17 X1000 (0.0-0.7); EOS% 3.8 % (0.0-10.0); HEMATOCRIT 25.2 % (37.0-47.0); HEMOGLOBIN 7.8 g/dL (12.0-16.0); IMM GRAN# 0.04 X1000 (0.0-0.04); IMM GRAN% 0.9 % (0.0-0.5); LYMPH# 1.18 X1000 (1.2-3.4); MCH 30.4 PG (27-31); MCV 98.1 FL (81-99); MONO# 0.33 X1000 (0.11-0.59); MONO% 7.3 % (1.7-9.3); NEUT# 2.79 X1000 (1.4-6.5); NEUT% 61.6 % (42.2-75.2); PLT 227 X1000 (130-400); RBC 2.57 XMIL (4.2-5.4); RDW 13.8 % (11.5-14.5); WBC 4.53 X1000 (4.8-10.8)
[2019-08-15 06:50] LABS: ALB/GLOB RATIO 1.1; CALCIUM 8.7 mg/dL (8.8-10.2); CREATININE 0.9 mg/dL (0.5-0.9); POTASSIUM 4.4 mmol/L (3.5-5.1); TOTAL BILIRUBIN 0.31 mg/dL (0.20-1.00); TOTAL PROTEIN 5.8 g/dL (6.3-8.3)
--- NOTE | 2019-08-15 07:27 | PROGRESS NOTE ---
DATE: 08/14/2019 SUBJECTIVE: Upon my arrival this morning, patient was in bed eating. Overall, patient states she rested well overnight. Throughout the day, patient states she did very well. She was assisted out of bed in the chair for several hours. Her p.o. intake remains adequate. She denies fevers, chills, nausea, vomiting, shortness of breath, or chest discomfort. OBJECTIVE: T-max 99.1 degrees, heart rate 59 to 62, respirations 16 to 20, blood pressure 137 to 197/41 to 58.General: Chronically ill-appearing, no acute distress. Cardiovascular: Regular rate and rhythm. No significant murmurs, rubs, or gallops. Pulmonary: Clear to auscultation anteriorly. Abdomen: Soft, nontender, nondistended. Positive bowel sounds. Extremities: Moves all extremities well. No significant clubbing, cyanosis, 1+ lower extremity edema bilaterally. Dermatologic: Evaluation reveals no evidence of rash. LABORATORY DATA: White blood cell count 4.63, hemoglobin 7.7, hematocrit 25.3, platelet count 206,000. ASSESSMENT/PLAN: 1. Urinary tract infection -- this likely was the etiology of patient's underlying fever. Culture grew Escherichia coli. Patient is currently being treated with cefepime therapy. We will continue this for now. 2. Right groin seroma -- cultures grew Escherichia coli. We will continue cefepime as noted. The patient continues to have significant serous drainage. We will continue supportive care. 3. Alteration of mental status -- patient has achieved improvement with treatment of her underlying infection. 4. Hypoxia -- we will continue patient on oxygen per protocol. 5. Aortic stenosis -- patient is postoperative day #11 transcatheter aortic valve replacement. No significant complications have been noted with exception of right groin seroma. 6. Pacemaker implantation -- patient is postoperative day #9. Telemetry suggests an appropriately functioning pacemaker. 7. Profound weakness -- we continue patient on physical therapy. Patient likely will require rehabilitation at discharge. 8. Hypertension -- the patient's blood pressure remains elevated. We will increase lisinopril to 20 mg twice daily. We will continue to follow closely. 9. Diabetes -- we will continue patient on sliding scale. Blood sugars are reasonably controlled. 10. Anemia- -- the patient has no evidence of active blood loss. Hemoglobin and hematocrit of marginal, but stable. We will remain aware. 11. Disposition. At this point, patient is approaching optimum hospital management. She will require rehabilitation. We will plan discharge once a bed is available. cc: Anthony Sánchez MD
[2019-08-15] MEDS: HUMALOG SUBQ SCH ×3 (07:39→16:22)
[2019-08-15] MEDS ORDERED: BLISTEX MEDICATED BERRY LIP BALM TOP ONE (07:45)
[2019-08-15] MEDS: ULTRAM PO SCH (09:43)
[2019-08-15] MEDS: IMDUR PO SCH (09:43)
[2019-08-15] MEDS: SYNTHROID PO SCH (09:43)
[2019-08-15] MEDS: PRINIVIL PO SCH (09:43)
[2019-08-15] MEDS: ARIMIDEX PO SCH (09:43)
[2019-08-15] MEDS: ASPIRIN EC PO SCH (09:43)
[2019-08-15] MEDS: COREG PO SCH (09:44)
[2019-08-15] MEDS: VITAMIN D PO SCH (09:44)
[2019-08-15] MEDS: PRISTIQ ER PO SCH (09:44)
[2019-08-15] MEDS: ELIQUIS PO SCH (09:44)
[2019-08-15] MEDS: CORDARONE PO SCH (09:44)
[2019-08-15] MEDS: FERROUS SULFATE PO SCH (09:44)
[2019-08-15] MEDS: FOLIC ACID PO SCH (09:44)
[2019-08-15] MEDS ORDERED: PREVNAR 13 IM ONE (10:54)
[2019-08-15] MEDS ORDERED: FLU VACCINE IM ONE (10:54)
[2019-08-15] MEDS: MAXIPIME 2 GM in NS 100 ML IV SCH (11:16)
--- NOTE | 2019-08-15 12:06 | DISCHARGE SUMMARY ---
ADMISSION DATE: 08/09/2019 DISCHARGE DATE: 08/15/2019 ADMISSION DIAGNOSES: 1. Alteration of mental status. 2. Fever. DISCHARGE DIAGNOSES: 1. Urinary tract infection with pansensitive Escherichia coli. 2. Infected right groin seroma with pansensitive Escherichia coli. 3. Alteration of mental status, resolved. 4. Fever, resolved. 5. Hypoxemia, stable with oxygen per protocol. 6. Aortic stenosis, postoperative day number 12 Transcatheter aortic valve replacement. 7. Pacemaker implantation, postoperative day number 10. 8. Profound weakness, improving with physical therapy. 9. Hypertension, present on arrival. 10. Diabetes, present on arrival. 11. Anemia, present on arrival, but stable. CONSULTATIONS: 1. Dr. Muro with General Surgery was consulted for further evaluation and management of an infected right groin seroma. 2. Dr. Edmondson with Cardiology was consulted for further evaluation and management of postoperative TAVR. PROCEDURES: 1. Right groin ultrasound was performed on 08/10/2019, which revealed irregular collection in the right inguinal region, likely representing a hematoma or seroma. 2. CT scan of the abdomen and pelvis without contrast was performed on 08/10/2019, which revealed cardiomegaly with pulmonary edema and trace pleural effusion. Sludge or milk of calcium within the gallbladder. Nonobstructing left renal stone. Prominent atherosclerosis. Prominent constipation. Hysterectomy. Subcutaneous air and edema in the right inguinal region apparently due to recent procedure. No well-defined fluid collection or abscess. 3. A bedside right groin seroma was performed on 06/18/[address] Muro. HISTORY AND PHYSICAL EXAMINATION: See admit note. PHYSICAL EXAMINATION PRIOR TO DISCHARGE: Vital Signs: Temperature 98.6 degrees, heart rate 63, respirations 12, blood pressure is 193/49. General: Chronically ill appearing, no acute distress. Cardiovascular: Regular rate and rhythm. No significant murmurs, rubs, or gallops. Pulmonary: Essentially clear to auscultation bilaterally. Abdomen: Soft, nontender, nondistended. Positive bowel sounds. Extremities: Moves all extremities well. No significant clubbing or cyanosis. There is 1+ lower extremity edema bilaterally. Dermatologic: Evaluation reveals a dressed right groin. LABORATORY DATA PRIOR TO DISCHARGE.: White blood cell count 4.53, hemoglobin 7.8, hematocrit 25.2, platelet count 227,000. Sodium 141, potassium 4.4, chloride 103, bicarbonate 28, BUN 16, creatinine 0.9, glucose 124, calcium 8.7, total bilirubin 0.31, total protein 5.8, albumin 3, alkaline phosphatase 98, AST 12, ALT 10. HOSPITAL COURSE: Patient was admitted as per history and physical examination. Hospital course per condition is as follows: 1. Urinary tract infection: Upon admission, the patient was noted to have a grossly abnormal urinalysis. Patient was started on broad-spectrum antibiotics. Urine culture returned positive for a pansensitive Escherichia coli. Blood cultures returned negative. With antibiotic intervention, patient's condition rapidly improved. The patient was continued on cefepime throughout hospitalization. She will be transitioned to 2 additional weeks of Keflex 500 mg twice daily. At this point, it is felt retaining the Ye catheter is most appropriate. It appears that the patient's urinary tract infection contaminated the seroma as they are similar pathogens as the sensitivities of the Escherichia coli is exact. For this reason, we will continue Ye catheter for 2 additional weeks with anticipation that the seroma will close and stop draining at that time. We will follow this closely. 2. Infected right groin seroma: As above, upon admission, the patient was noted to have purulent drainage from her right groin incision site. This was a consequence of her recent capital TAVR intervention. Ultrasound was performed revealing a fluid pocket. Dr. Muro was consulted. The seroma was drained. Approximately 200-300 mL of fluid was removed. Culture returned with an identical Escherichia coli as the urinary tract infection. This likely was a consequence of patient's urinary incontinence and contamination of the incision site. Throughout hospitalization, patient's overall condition improved. Dr. Muro discussed this case with positions at [facility]. Recommendations are that we should continue antibiotics for 1 to 2 more weeks. The seroma will likely resolve spontaneously. We will encourage dry dressing change 4 times daily. We will complete 2 additional weeks of Keflex therapy. Followup will need to be arranged with Dr. Brenden Muro in 1 week. 3. Alteration of mental status: This likely is a consequence of her underlying infection. With treatment of above, the patient has regained normal mentation. 4. Fevers: Once again, this is secondary to her infections as described above. Cultures are as noted. Blood cultures returned negative. The patient's fever has resolved. 5. Hypoxia: The patient requires oxygen at nighttime at home. Throughout hospitalization, she required [id number] oxygen. She will be discharged to rehabilitation with oxygen per protocol. With time and with increased activity, I anticipate she can return to just nighttime use. We will need to follow this as well. 6. Aortic stenosis: The patient is postoperative day number 12 Transcatheter aortic valve replacement. With exception of the right groin seroma, she has had no complications. We will defer further management to her physician's at [facility]. 7. Pacemaker implantation: Patient is postoperative day number 10. Telemetry suggested an appropriately functioning pacemaker. As physical therapy is initiated, we will need to take pacemaker precautions. 8. Profound weakness: The patient has achieved improvement, although not a resolution to her baseline. The patient will be discharged to rehabilitation for further physical therapy. As above, we will need to take precautions with her newly placed pacemaker. 9. Hypertension: The patient has longstanding disease. She was continued on her home medications while hospitalized. Despite this, she had episodes of elevation. Lisinopril was increased to 20 mg twice daily prior to discharge. This will need to be followed at rehabilitation. Further titration may be necessary. She is asymptomatic. 10. Diabetes: the patient was followed with sliding scale insulin while hospitalized. We will have patient resume glimepiride 4 mg daily at discharge. We will defer further management to rehabilitation physicians. One might consider sliding scale insulin to confirm adequate control. 11. Anemia: While hospitalized, the patient was noted to have a considerable anemia. She did not, however, meet criteria for transfusion. Hemoglobin and hematocrit at discharge are 7.8 and 25.2. We will continue iron, folic acid, and vitamin B12 replacement. This will need to be followed up as well. DISCHARGE CONDITION: Stable. DISPOSITION: Discharge to rehabilitation. MEDICATIONS: 1. Acetaminophen 650 mg every 6 hours as needed. 2. Xanax 0.25 mg every 6 hours as needed. 3. Amiodarone 200 mg daily. 4. Amlodipine 5 mg at bedtime. 5. Aspirin 81 mg daily. 6. Carvedilol 12.5 mg twice daily. 7. Clonazepam 0.5 mg at bedtime. 8. Imdur 30 mg daily. 9. Lisinopril 20 mg twice daily. 10. Anastrozole 1 mg daily. 11. Eliquis 5 mg twice daily. 12. Cephalexin 500 mg twice daily for 14 days. 13. Vitamin D3 at 2000 units daily. 14. Vitamin B12 at 1000 mcg daily. 15. Pristiq 100 mg daily. 16. Colace 100 mg twice daily. 17. Iron sulfate 325 mg daily. 18. Folic acid 1 mg daily. 19. Lasix 40 mg daily as needed for edema. 20. Glimepiride 4 mg daily. 21. Levothyroxine 250 mcg daily. 22. Oxybutynin 5 mg twice daily. 23. Tramadol 50 mg every 12 hours. 24. DuoNeb as needed. 25. Oxygen per protocol. FOLLOWUP: 1. Patient to follow up with Dr. Brenden Muro in approximately 1 week for repeat evaluation of right groin seroma. 2. Patient is follow up with me upon discharge from rehabilitation. cc: Anthony Sánchez MD
[2019-08-15 15:12] VITALS: BP 163/42
== END 2019-08-15 17:54 | DRG 920 ==
LOC: SUPCPDRO → ED 20:18 → 2N 22:20
PROVIDERS: ADMIT Internal Medicine; ATTEND Internal Medicine

== ENCOUNTER 2019-10-09 13:42 | Inpatient (IN) ==
--- NOTE | 2019-10-09 15:30 | Diag Imaging Result Doc PS360 ---
EXAM: LOWER LEG-LEFT 10/09/2019 HISTORY: fall TECHNIQUE: Left lower leg four views COMMENT: There is severe degenerative arthritis in the medial joint compartment of the knee. There is no evidence of fracture or dislocation or periosteal reaction. IMPRESSION: Osteoarthritis. Electronically signed by Sterling Wilkinson 10/09/2019 3:28 PM
--- NOTE | 2019-10-09 17:55 | Diag Imaging Result Doc PS360 ---
EXAM: FOOT COMPLETE LEFT - 10/09/2019 HISTORY: fall, foot pain TECHNIQUE: Left foot three views COMPARISON: None. FINDINGS: There is calcaneal spurring at the plantar fascia and Achilles tendon insertions. There are degenerative/osteoarthritic changes which are most prominent at interphalangeal joints. There is no fracture or dislocation identified. There are atherosclerotic calcifications noted. IMPRESSION: No evidence of fracture or dislocation. Electronically signed by Rush Handy 10/09/2019 5:53 PM
--- NOTE | 2019-10-09 18:58 | PROVIDER DOCUMENTATION ---
This chart was entered by Deandra Kwong Scribgreg, acting as scribe for Kt Wan MD. HPI-Musculoskeletal Pain/Inj - GENERAL Chief Complaint: Extremity Pain Stated Complaint: leg injury Time Seen by Provider: 10/09/19 16:40 Source: patient, family, EMS - HX OF PRESENT ILLNESS-MUSKULOSKELTAL Nature of Presenting Problem: Pt is a 79 yowf brought to ED by EMS after falling while trying to get into her wheelchair and she twisted her left knee. Pt stated that her PCP wanted her to go to ED when he was called. Pt states that her leg from the knee down hurts. Pt has a Ye catheter and uses a wheelchair. Pt lives at home alone. Pt is alert, a little disheveled but nontoxic in appearance. Quality of Pain: reports: dull, throbbing Severity in ED: moderate Onset/Duration: abrupt, 4 days ago Timing: still present, constant, getting worse Modifying Factors: worse with: movement, palpation Any recent injury?: No Locality of Occurance: Other ([facility]) Similar Symptoms Previously?: No Recently seen or treated by another doctor?: Yes (ED 08/24/2019) - FALL INJURY Location of Pain/Injury: reports: lower extremity (left knee down to foot) Pain Radiation: reports: no radiation Reason for Fall: reports: lost balance Symptoms prior to fall:: reports: none Loss of Consciousness: no loss of consciousness Injury Associated Symptoms: reports: unable to bear weight, trouble walking. denies: dizziness, shortness of breath, vomiting - LOWER EXTREMITY PAIN/INJURY Lower Extremities Pain: knee: left (Twisted while trying to get into wheelchair), foot: left (fell onto when she slipped while trying to get into wheelchair) Context / Method of Injury: reports: fell Associated Symptoms: reports: weakness in legs/feet Review of Systems - Adult - REVIEW OF SYSTEMS - ADULT Constitutional: denies: chills, fever Eyes: reports: no symptoms reported Ears, Nose, Mouth & Throat: reports: no symptoms reported Cardiovascular: denies: chest pain, syncope Respiratory: denies: cough, shortness of breath, wheezing Gastrointestinal: denies: abdominal pain, nausea, vomiting Genitourinary: reports: no symptoms reported Musculoskeletal: reports: see HPI, bone pain (left knee down to foot) Integumentary: reports: no symptoms reported Neurological: reports: see HPI, loss of balance. denies: syncope Psychiatric: reports: no symptoms reported Endocrine: reports: no symptoms reported Hematologic/Lymphatic: reports: no symptoms reported Allergic/Immunologic: reports: no symptoms reported All Other Systems: Reviewed and Negative Past History - Adult - PAST MEDICAL HISTORY-ADULT Review of Records: reports: Old Records Reviewed, Nursing Assessment Review, Medications Reviewed, Social history reviewed & non-contributory. Major Childhood Illnesses: reports: denies history Cardiovascular: reports: cardiac disease, HTN Respiratory: reports: denies history Gastrointestinal: reports: denies history Obstetrical/Gynecological: reports: denies history Genitourinary: reports: denies history Musculoskeletal: reports: denies history Neurological: reports: CVA Endocrine/Immune: reports: Diabetes, thyroid disorder Other Conditions: reports: denies history - PRIOR SURGERIES/PROCEDURES Surgical/Procedure History: reports: CABG, cardiac stent, other (cataracts) - PRIOR HOSPITALIZATIONS Prior Hospitalizations: reports: none - IMMUNIZATION STATUS Childhood Immunizations: See Nurse Assessment Flu Vaccine: See Nurse Assessment - FAMILY HISTORY Family History: reviewed, not pertinent - SOCIAL HISTORY Smoking: non-smoker Substance Use: denies Living Situation: care facility Physical Exam-Injury Related - Physical Exam-Injury Related Initial Vital Signs Reviewed: Yes General Appearance: appears well, alert, no apparent distress, obese Eyes: PERRL/EOMI, pink conjunctivae Head, Ears, Nose, Mouth & Throat: normocephalic/atraumatic, moist mucous membranes, normal ENT inspection Neck: non-tender, full range of motion, supple, normal inspection Respiratory: chest non-tender, lungs clear, normal breath sounds, no pleuratic chest pain, no respiratory distress Cardiovascular: normal peripheral pulses, regular rate, rhythm Chest/Breast: deferred Abdominal Exam: normal bowel sounds, non tender, soft, no organomegaly, no pulsatile mass Female Genitalia/Pelvic Exam: other (Ye cath in place on arrival) Back Exam: normal inspection, no CVA tenderness, no vertebral tenderness Extremity: normal inspection, tenderness (left knee down to left foot) Integumentary: normal color, warm/dry Psych/Mental Status: normal mood/affect, normal thought content, normal thought process, oriented x 3 - Glascow Coma Score Best Eye Response (Caleb): (4) open spontaneously Best Verbal Response (Johnson): (5) oriented Best Motor Response (Johnson): (6) obeys commands Johnson Total: 15 Progress - PLAN OF CARE/RESULTS Progress/Plan/Lab Results: Vital Signs - 8 hr 10/09/19 14:01 10/09/19 15:36 Temperature 98.0 F 98.0 F Pulse Rate 67 69 Respiratory Rate 15 18 Blood Pressure 155/66 149/61 O2 Sat by Pulse Oximetry 97 97 Orders Category Date Time Status Ye Cath Insertion ORDERED Care 10/09/19 16:52 Active FOOT COMPLETE LEFT [RAD] Stat Exams 10/09/19 16:52 Completed LOWER LEG-LEFT [RAD] Stat Exams 10/09/19 15:10 Completed URINALYSIS W/POSS RFLX CULT [URINALYSIS] Stat Lab 10/09/19 16:52 Uncollected - XRAY 1 XRAY: Left XRAY Study: Foot (Lower Extremity), other Impression: See EMR Report (EXAM: LOWER LEG-LEFT 10/09/2019 HISTORY: fall TECHNIQUE: Left lower leg four views COMMENT: There is severe degenerative arthritis in the medial joint compartment of the knee. There is no evidence of fracture or dislocation or periosteal reaction. IMPRESSION: Osteoarthritis. Electronically signed by Sterling Wilkinson 10/09/2019 3:28 PM 10/09/19 1528 Interpreting Physician: Sterling Wilkinson MD Dictated Date/Time: 10/09/19 1527 cc: Kary Blair MD; Anthony Sánchez MD) 2 XRAY: Left XRAY Study: Foot Impression: See EMR Report - CONSULTS/PCP/HOSPITALIST Notification #1 *Consult/PCP/Hospitalist*: Dr Sánchez Time Discussed: 18:57 Consult Disposition: Will see in ED, Admit Departure - Departure Date of Disposition Decision: 10/09/19 Time of Disposition Decision: 18:57 DIAGNOSIS: Weakness, UTI (urinary tract infection), Fall, Osteoarthritis Disposition: ADMITTED INPATIENT 09 Certified Medical Emergency: Emergent Condition: Fair Referrals and Follow-Ups: Anthony Sánchez MD [Primary Care Provider] - - Critical Care Note This patient required my direct & personal management of CC.: No Attestation - Physician/ CANDACE Attestation Patient care was provided by Advanced Practice Provider:: No The physician spent face to face time with patient:: Yes Advanced Practice Provider documentation review:: Supervising physician onsite and consulted in the evaluation and care of this patient. The physician did have a face to face encounter with the patient. This chart was documented by the indicated scribe, (Deandra Kwong, Pamela) and accurately reflects the services I performed and decisions made by me, Kt Wan MD, as attested by the provider's signature.
[2019-10-09 20:09] LABS: BASO# 0.03 X1000 (0.0-0.2); BASO% 0.5 % (0.0-0.8); EOS# 0.19 X1000 (0.0-0.7); EOS% 2.9 % (0.0-10.0); HEMATOCRIT 31.5 % (37.0-47.0); HEMOGLOBIN 9.8 g/dL (12.0-16.0); IMM GRAN# 0.02 X1000 (0.0-0.04); IMM GRAN% 0.3 % (0.0-0.5); LYMPH# 2.28 X1000 (1.2-3.4); LYMPH% 35.1 % (20.5-51.1); MCH 29.4 PG (27-31); MCHC 31.1 g/dL (33-37); MCV 94.6 FL (81-99); MONO# 0.46 X1000 (0.11-0.59); MONO% 7.1 % (1.7-9.3); MPV 9.2 FL (7.4-10.4); NEUT# 3.52 X1000 (1.4-6.5); NEUT% 54.1 % (42.2-75.2); PLT 244 X1000 (130-400); RBC 3.33 XMIL (4.2-5.4); RDW 15.3 % (11.5-14.5)
[2019-10-09 20:34] LABS: URINE SOURCE CATH
[2019-10-09 20:41] LABS: BILIRUBIN URINE NEGATIVE (NEGATIVE); BLOOD URINE SMALL (NEGATIVE); COLOR YELLOW; GLUCOSE URINE NEGATIVE (NEGATIVE); KETONE URINE NEGATIVE (NEGATIVE); LEUKOCYTES URINE LARGE (NEGATIVE); NITRITE URINE NEGATIVE (NEGATIVE); PROTEIN URINE 100 mg/dL (NEGATIVE); SP GRAVITY URINE 1.018; TURBIDITY URINE HAZY (CLEAR); UROBILINOGEN URINE NORMAL (NORMAL)
[2019-10-09 20:50] LABS: UR EPITHELIAL CELLS <10 /HPF (<10); URINE BACTERIA 3+ /HPF; URINE RBC 20-40 /HPF (<10); URINE WBC TNTC /HPF (<10)
--- NOTE | 2019-10-09 20:53 | HISTORY AND PHYSICAL ---
PRIMARY CARE PHYSICIAN: Dr. Anthony Sánchez CHIEF COMPLAINT: Profound weakness. HISTORY OF PRESENT ILLNESS: A 79-year-old white female with a complicated past medical history presents for evaluation of above-mentioned symptoms. Pertinent history of present illness began on 08/09/2019. At that time, she presented to the emergency department with alteration of mental status. The patient was approximately 1 week postoperative TAVR intervention. Full evaluation was pursued. Patient was found to have a draining seroma of the right groin. Urinary tract infection was also identified. The patient remained hospitalized until 08/15/2019 At that time, she was discharged to rehabilitation for further management. The patient remained there for approximately 21 days. She continued to have a draining seroma, however, a wound VAC was subsequently placed. Since patient has been home, patient's overall condition has been marginal. She has been profoundly weak, progressing over the last several weeks. She has had multiple falls. Most recently, on Sunday evening, she fell to the ground after twisting her left foot on her wheelchair. The patient was unable to rise. She insisted to her daughter that she would stay on the floor until the morning at which time family could be contacted. The patient stayed overnight and on Sunday morning family was contacted but was unable to assist her to her feet. EMS was called and the patient was placed in a chair. Since that time, she has been unable to bear weight. She is requiring significant assistance with all daily tasks. There has been no evidence of fevers, chills, nausea, vomiting, shortness of breath, chest discomfort, or change in bowel movements. She has a Ye catheter intact. Because of patient's progressive weakness and inability to stand or transfer, patient will be admitted to the hospital for full evaluation and management with probable rehabilitation at discharge. PAST MEDICAL HISTORY: 1. History of acute renal failure in 2016 with improvement status post medication adjustment. 2. Anemia. 3. Aortic stenosis, status post TAVR intervention in July 2019. 4. History of postoperative atrial fibrillation treated with amiodarone therapy. 5. History of right breast cancer, status post mastectomy in 2015. 6. Left bundle branch block. 7. Chronic ischemic heart disease, status post coronary artery bypass grafting in 2006 and left heart catheterization with stenting in 2010. 8. Congestive heart failure diagnosed in 2016. 9. Depression. 10. Diabetes. 11. Longstanding lower extremity edema. 12. Reflux disease. 13. Hypertension. 14. Hyperlipidemia. 15. Chronic hypoxia treated with supplemental oxygen. 16. Mild cognitive impairment. 17. History of nephrolithiasis, treated with ureteroscopy and stenting in 2001. 18. Morbid obesity. 19. Advanced osteoarthritis of bilateral knees. 20. History of an indeterminate pancreatic nodule/cyst diagnosed in December [address] Cerrato. 21. Postmenopausal state. 22. Hypothyroidism. 23. History of retinal artery occlusion in September 2015 with loss of right vision. 24. Chronic urinary incontinence. 25. Venous insufficiency. CURRENT MEDICATIONS: 1. Acetaminophen 650 mg every 6 hours as needed. 2. Alprazolam 0.25 mg every 6 hours as needed. 3. Amiodarone 200 mg daily. 4. Amlodipine 5 mg at bedtime. 5. Arimidex 1 mg daily. 6. Eliquis 5 mg twice daily. 7. Aspirin 81 mg daily. 8. Carvedilol 12.5 mg twice daily. 9. Vitamin D3 2000 units daily. 10. Clonazepam 0.5 mg at bedtime. 11. Vitamin B12 1000 mcg daily. 12. Pristiq 100 mg daily. 13. Colace 100 mg twice daily. 14. Iron sulfate 325 mg daily. 15. Folic acid 1 mg daily. 16. Lasix 40 mg daily as needed. 17. Glimepiride 4 mg daily. 18. Imdur 30 mg daily. 19. Levothyroxine 250 mcg daily. 20. Lisinopril 20 mg twice daily. 21. Tramadol 50 mg twice daily as needed. ALLERGIES: The patient states she is allergic to Crestor, Lipitor, lovastatin, penicillin, pravastatin, sulfa, and simvastatin. SOCIAL HISTORY: Patient denies tobacco, alcohol or illicit drug use. She previously worked as a homemaker. FAMILY HISTORY: Patient's father passed at age 80 secondary to unknown causes. He had a history of coronary artery disease. Patient's mother passed at age 68 secondary to complications of acute myocardial infarction. Patient's brother passed at age 63 secondary to an abdominal aortic aneurysm. He had a history of lung cancer. Patient's sister passed at age 80 secondary to complications of congestive heart failure. REVIEW OF SYSTEMS: A 12 point review of systems was performed. Pertinent positives and negatives are noted in history present illness. PHYSICAL EXAMINATION: Temperature 98 degrees, heart rate 69, respirations 18, blood pressure is 149/61. GENERAL: Chronically ill appearing, no acute distress. HEENT: Normocephalic, atraumatic. Pupils equal, round, reactive to light. Extraocular muscles intact. Sclerae anicteric. Palominas conjunctivae. Oral and nasopharynx clear without exudate. NECK: Supple. No lymphadenopathy. No thyromegaly. No bruits auscultated. CARDIOVASCULAR: Regular rate and rhythm. No significant murmurs, rubs, or gallops. PULMONARY: Clear to auscultation anteriorly. ABDOMEN: Soft, nontender, nondistended. Positive bowel sounds. EXTREMITIES: Moves all extremities. No significant no significant clubbing, cyanosis, or edema. NEUROLOGIC: Cranial nerves 2-12 grossly intact. Motor and sensory grossly intact. Psychologic examination is appropriate. LABORATORY DATA: 1. Pending at the time of admission. 2. X-ray of the left lower leg revealed severe degenerative arthritis of the medial joint compartment of the knee. 3. X-ray of the foot and ankle revealed no evidence of fracture or dislocation. ASSESSMENT AND PLAN: A 79-year-old white female with a very complicated past medical history presents for evaluation of profound weakness after suffering a fall. As described above, patient is unable to stand, even with assistance. She is unable to care for herself, and family is unable to provide this care secondary to her morbid obesity. The patient will be admitted to the hospital for full evaluation and management of this condition. 1. Admit to General Medicine. 2. Profound weakness-I suspected this is secondary to deconditioning in the setting of recent hospitalization for TAVR and subsequent hospitalization for urinary tract infection. We will check multiple labs to ensure there is no additional etiology, including recurrent urinary tract infection or electrolyte abnormality/anemia. We will initiate physical therapy. Patient likely will benefit from physical therapy at time of discharge. 3. Multiple falls/extreme fall risk-this is secondary to her profound weakness. X-rays of the knee left knee and ankle revealed no evidence of acute fracture. We will initiate physical therapy. We will check a CK level as patient did spend the night on the ground after a recent fall. 4. Failure to thrive-unfortunately, patient is unable to care for herself at home. Her hygiene has suffered. Her family is attempting to provide this care, although with significant difficulty. With her morbid obesity, the patient has fallen multiple times and has required assistance from EMS to help her to her chair. At this point, I do feel a medical intervention is most appropriate. We will place patient in the hospital work with physical therapy. We will evaluate for underlying pathology. Depending on the findings, we will likely require rehabilitation at discharge. 5. Aortic stenosis-as above, patient is status post recent TAVR intervention. She had developed a subsequent seroma. We will continue her optimized medical management. We will address seroma as described below. 6. Right groin seroma-the patient was diagnosed after TAVR intervention in July. Patient has required a wound VAC. Ultimately, the patient has achieved near resolution. She has minor drainage. We will continue supportive care. 7. Urinary incontinence-patient presented with a Ye catheter in place. We will continue this for now. At this point, clinically this appears to be infected. A Ye catheter was changed. We will check a urinalysis. 8. Ischemic heart disease-we will continue patient on the patient's optimized medical management. 9. Congestive heart failure-patient does not have any evidence of acute failure at this point. We will continue her home medications. 10. Depression-this largely is situational secondary to her multiple medical conditions. We will continue Pristiq therapy. 11. Hypertension-we will continue home medications. 12. Hyperlipidemia-unfortunately, patient cannot tolerate statin intervention. We will remain aware. 13. Hypoxemia-we will continue oxygen per protocol. 14. Advanced osteoarthritis-unfortunately, patient is not a candidate for total knee arthroplasty. We will continue symptomatic management and physical therapy. 15. Morbid obesity-unfortunately, this is contributing to her overall condition. We will remain aware. 16. Hypothyroidism-we will continue patient on replacement. 17. Fluid, electrolytes, nutrition. We will monitor electrolytes. Saline lock IV. Cardiac prudent/diabetic diet. 18. Prophylaxis. Patient will be continued on Eliquis therapy. cc: Anthony Sánchez MD
[2019-10-09 20:55] LABS: URINE CASTS NONE SEEN; URINE CRYSTALS NONE SEEN; URINE YEAST NONE SEEN
[2019-10-09 21:01] LABS: ALB/GLOB RATIO 0.8; CALCIUM 8.9 mg/dL (8.8-10.2); CREATININE 1.1 mg/dL (0.5-0.9); POTASSIUM 4.4 mmol/L (3.5-5.1); TOTAL BILIRUBIN 0.33 mg/dL (0.20-1.00); TOTAL PROTEIN 6.8 g/dL (6.3-8.3)
[2019-10-09] MEDS ORDERED: ULTRAM PO PRN (22:33)
[2019-10-09] MEDS ORDERED: TYLENOL PO PRN (22:33)
[2019-10-09] MEDS ORDERED: XANAX PO PRN (22:33)
[2019-10-09] MEDS ORDERED: LASIX PO PRN (22:33)
[2019-10-10] MEDS: HUMALOG SUBQ SCH ×5 (00:21→23:03)
[2019-10-10] MEDS: ROCEPHIN 1 GM in NS 50 ML IV SCH ×2 (00:22→21:43)
[2019-10-10] MEDS: ELIQUIS PO SCH ×3 (00:27→21:44)
[2019-10-10] MEDS: KLONOPIN PO SCH ×2 (00:27→21:44)
[2019-10-10] MEDS: NORVASC PO SCH ×2 (00:27→21:44)
[2019-10-10] MEDS: PRINIVIL PO SCH ×3 (00:27→21:44)
[2019-10-10] MEDS: COLACE PO SCH ×3 (00:27→21:44)
[2019-10-10] MEDS: COREG PO SCH ×3 (00:30→21:44)
[2019-10-10] MEDS: SYNTHROID PO SCH (06:36)
[2019-10-10] MEDS: IMDUR PO SCH (09:01)
[2019-10-10] MEDS: ASPIRIN EC PO SCH (09:01)
[2019-10-10] MEDS: AMARYL PO SCH (09:02)
[2019-10-10] MEDS: CORDARONE PO SCH (09:02)
[2019-10-10] MEDS: PRISTIQ ER PO SCH (09:02)
[2019-10-10] MEDS: VITAMIN D PO SCH (09:02)
[2019-10-10] MEDS: FOLIC ACID PO SCH (09:02)
[2019-10-10] MEDS: FERROUS SULFATE PO SCH (09:02)
[2019-10-10] MEDS: VITAMIN B-12 PO SCH (09:02)
[2019-10-10] MEDS: ARIMIDEX PO SCH (16:44)
--- NOTE | 2019-10-10 19:32 | PROGRESS NOTE ---
DATE: 10/10/2019 SUBJECTIVE: The patient was admitted yesterday with profound weakness and ultimate failure to thrive. Full evaluation was pursued. In addition to her profound weakness, she was found to have a urinary tract infection. She was started on IV antibiotic intervention. Overnight, the patient states she rested reasonably well. Upon my arrival this morning, the patient stated that overall her condition was improving. She continued to have profound weakness. Through the day, physical therapy worked with the patient, although she was unable to rise to a standing position. Wound Care was consulted secondary to her persistent seroma. Recommendations were made. This evening upon arrival, the patient was resting in bed. Again she denies specific complaints including fevers, chills, nausea, vomiting, shortness of breath, or chest discomfort. OBJECTIVE: Vital Signs: T-max 98.6 degrees, heart rate 60 to 70, respirations 15 to 18 ,blood pressure 142 to 173 over 36 to 66. General: Chronically ill appearing, in no acute distress. Cardiovascular: Regular rate and rhythm. No significant murmurs, rubs, or gallops. Pulmonary: Clear to auscultation anteriorly. Abdomen: Soft, nontender, nondistended. Positive bowel sounds. Extremities: Moves all extremities well. No significant clubbing or cyanosis. Has 1 to 2+ lower extremity edema bilaterally. Dermatologic: Reveals no evidence of rash. LABORATORY DATA: None. ASSESSMENT AND PLAN: 1. Profound weakness - Unfortunately, this likely is multifactorial. This includes that of recent hospitalization for TAVR, subsequent hospitalization for urinary tract infection, persistent seroma to the right groin, and current urinary tract infection. Physical therapy has been initiated. Unfortunately, she remains unable to stand. We will likely require rehabilitation at time of discharge. We will continue to encourage activity for now. 2. Multiple falls/extreme fall risk - There was no evidence of acute fracture per x-rays in the emergency department. Her falls are likely a consequence of age, weakness, and arthritic changes. We will continue physical therapy and anticipate rehabilitation at discharge. 3. Failure to thrive - Unfortunately, she is unable to care for herself at home. She currently requires full assistance from her daughter, but her requirements have become more than 1 person can provide. We will anticipate rehabilitation at time of discharge with hopes she can return home. The patient and family are aware that there remains a high likelihood that she may require long-term detention care. 4. Aortic stenosis - Patient is status post TAVR. Postoperative course has been complicated by a right groin seroma. She will be treated as described below. 5. Right groin seroma - Patient had her wound VAC removed 2 days ago. Wound appears to be clear. I appreciate wound-care consultation. 6. Urinary incontinence - At this point, Ye catheter remains in place secondary to contaminating her wound/seroma in the past. We will remain aware. 7. Urinary tract infection - The patient is being treated with IV Rocephin therapy. We will follow cultures. 8. Ischemic heart disease - We will continue to optimize medical and nonmedical management. 9. Congestive heart failure, systolic - The patient is treated with optimum medical management. Her volume status is stable. 10. Depression/anxiety - Unfortunately, this is significant. Symptoms have been exacerbated recently secondary to her multiple medical conditions. She is currently treated with Pristiq therapy. 11. Hypertension -Blood pressure is slightly elevated today. For now, we will continue her home medical regimen and consider titrating doses depending on her levels over the next several days. 12. Hyperlipidemia - The patient is unable tolerate statin intervention. We will continue supportive care. 13. Hypoxemia - We will continue oxygen per protocol. 14. Advanced osteoarthritis - We will continue symptomatic management. 15. Morbid obesity - Unfortunately, this is limiting her physical therapy as well as her ability to ambulate. We will continue to work toward improvement with diet and exercise. 16. Hypothyroidism - We will continue patient on replacement. 17. Disposition - At this point, patient continues to require detention care in a hospital setting. We will plan discharge home once appropriate. cc: Anthony Sánchez MD
[2019-10-11] MEDS: HUMALOG SUBQ SCH ×4 (06:05→23:23)
[2019-10-11] MEDS: SYNTHROID PO SCH (06:21)
[2019-10-11] MEDS: PRISTIQ ER PO SCH (08:51)
[2019-10-11] MEDS ORDERED: MIRALAX PO ONE (08:51)
[2019-10-11] MEDS ORDERED: MIRALAX PO PRN (08:51)
[2019-10-11] MEDS: VITAMIN B-12 PO SCH (08:51)
[2019-10-11] MEDS: PRINIVIL PO SCH ×2 (08:51→21:14)
[2019-10-11] MEDS: VITAMIN D PO SCH (08:51)
[2019-10-11] MEDS: ASPIRIN EC PO SCH (08:52)
[2019-10-11] MEDS: FOLIC ACID PO SCH (08:52)
[2019-10-11] MEDS: ELIQUIS PO SCH ×2 (08:52→21:14)
[2019-10-11] MEDS: CORDARONE PO SCH (08:52)
[2019-10-11] MEDS: AMARYL PO SCH (08:52)
[2019-10-11] MEDS: COLACE PO SCH ×2 (08:52→21:14)
[2019-10-11] MEDS: IMDUR PO SCH (08:52)
[2019-10-11] MEDS: FERROUS SULFATE PO SCH (08:52)
[2019-10-11] MEDS: COREG PO SCH ×2 (08:52→21:14)
[2019-10-11] MEDS: ARIMIDEX PO SCH (08:58)
--- NOTE | 2019-10-11 09:56 | PROGRESS NOTE ---
DATE: 10/11/2019 SUBJECTIVE: Upon my arrival this morning, patient was resting in bed. Overall, patient states she had a good night. She continues to be very weak. Her p.o. intake is adequate. She denies fevers, chills, nausea, vomiting, shortness of breath or chest discomfort. The patient has not had a bowel movement since admission. OBJECTIVE: Vital Signs: T-max 98.6 degrees, heart rate 60 to 65, respirations 12 to 20, blood pressure 142 to 180/36 to 45. General: Chronically ill appearing, no acute distress. Cardiovascular: Regular rate and rhythm. No significant murmurs, rubs, or gallops. Pulmonary: Clear to auscultation anteriorly. Abdomen: Soft, nontender, nondistended. Positive bowel sounds. Extremities: Moves all extremities well. No significant clubbing or cyanosis. There is 1+ lower extremity edema bilaterally. Dermatologic: Evaluation reveals no evidence of rash. LABORATORY DATA: None. ASSESSMENT AND PLAN: 1. Profound weakness--this likely is multifactorial, including urinary tract infection, recent hospitalization for altered mental status secondary to urinary tract infection, and recent hospitalization for transcatheter aortic valve replacement. Her transcatheter aortic valve replacement intervention was complicated by persistent seroma. Overall, patient's profound weakness has inhibited her from a full recovery. She is unable to stand at this point. For now, we will continue physical therapy. Patient likely will require rehabilitation at discharge. I have discussed this in detail with patient's family. She will likely require either mcc placement or more assistance at home after rehabilitation. 2. Multiple falls/extreme fall risk--there has been no evidence of fracture per x-rays. This is a direct consequence of her profound weakness. As above, we will continue physical therapy with plans for rehabilitation. 3. Failure to thrive--once again, I discussed this in detail with patient's family. We will attempt rehabilitation at discharge. If this is not successful, alternative arrangements in her care will need to be made. The patient also understands the severity of her physical condition. 4. Aortic stenosis--the patient is status post transcatheter aortic valve replacement. The procedure itself she tolerated quite well. Unfortunately, she developed a chronic seroma as described below. We will continue her optimized medical management. 5. Right groin seroma--the patient has had a draining wound for several months. Recently, her wound VAC was discontinued. There is minor serous drainage present. We will continue wound care as directed by her vascular surgeon. Appreciate Wound Care's consultation. 6. Urinary tract infection--patient's culture grew Escherichia coli. At this point, we will continue intravenous Rocephin. We will plan to transition to oral antibiotics at discharge. 7. Urinary incontinence--upon her last admission, her wound and urine cultures returned this same. For this reason, a Ye catheter was placed. While I would prefer to have this removed, at this point I am hesitant secondary to her persistent open wound. The patient's family understands the potential complications associated with long-term catheterization. 8. Ischemic heart disease--the patient has longstanding disease. We will continue her optimized medical management. 9. Congestive heart failure--at this point, patient's volume status is stable. We will continue her home regimen. 10. Depression/anxiety--with her recent illnesses, this unfortunately has increased. She is currently treated with Pristiq therapy. At this point, I do not feel further intervention is warranted; however, we will monitor this. 11. Hypertension--the patient's blood pressure remains elevated. We will increase amlodipine to 5 mg twice daily. We will follow this while hospitalized. 12. Hyperlipidemia--the patient is unable to tolerate statin intervention. We will continue dietary modification. 13. Hypoxemia--we will continue oxygen per protocol. 14. Advanced osteoarthritis--this is compounding her rehabilitation potential. We will continue symptomatic management. 15. Morbid obesity--once again, this is contributing to her potential risk for rehabilitation failure. We will remain aware. 16. Hypothyroidism--we will continue patient on replacement. DISCHARGE CONDITION: At this point, patient continues to require mcc care in a hospital setting. We will plan discharge to rehabilitation once appropriate. cc: Anthony Sánchez MD
[2019-10-11] MEDS: NORVASC PO SCH ×2 (11:14→21:14)
[2019-10-11] MEDS: ROCEPHIN 1 GM in NS 50 ML IV SCH (21:13)
[2019-10-11] MEDS: KLONOPIN PO SCH (21:14)
[2019-10-12] MEDS: HUMALOG SUBQ SCH ×4 (07:10→21:15)
[2019-10-12 08:45] LABS: BASO# 0.02 X1000 (0.0-0.2); BASO% 0.4 % (0.0-0.8); EOS# 0.22 X1000 (0.0-0.7); EOS% 4.8 % (0.0-10.0); HEMATOCRIT 34.4 % (37.0-47.0); HEMOGLOBIN 10.4 g/dL (12.0-16.0); LYMPH# 1.86 X1000 (1.2-3.4); LYMPH% 40.7 % (20.5-51.1); MCH 28.7 PG (27-31); MCHC 30.2 g/dL (33-37); MCV 94.8 FL (81-99); MONO# 0.24 X1000 (0.11-0.59); MONO% 5.3 % (1.7-9.3); MPV 9.2 FL (7.4-10.4); NEUT# 2.23 X1000 (1.4-6.5); NEUT% 48.8 % (42.2-75.2); PLT 233 X1000 (130-400); RBC 3.63 XMIL (4.2-5.4); WBC 4.57 X1000 (4.8-10.8)
[2019-10-12] MEDS: SYNTHROID PO SCH (08:57)
[2019-10-12] MEDS: FOLIC ACID PO SCH (08:57)
[2019-10-12] MEDS: VITAMIN D PO SCH (08:57)
[2019-10-12] MEDS: COLACE PO SCH ×2 (08:57→20:58)
[2019-10-12] MEDS: AMARYL PO SCH (08:57)
[2019-10-12] MEDS: ASPIRIN EC PO SCH (08:57)
[2019-10-12] MEDS: COREG PO SCH ×2 (08:58→20:57)
[2019-10-12] MEDS: PRISTIQ ER PO SCH (08:58)
[2019-10-12] MEDS: PRINIVIL PO SCH ×2 (08:58→20:58)
[2019-10-12] MEDS: IMDUR PO SCH (08:58)
[2019-10-12] MEDS: NORVASC PO SCH ×2 (08:58→20:58)
[2019-10-12] MEDS: FERROUS SULFATE PO SCH (08:58)
[2019-10-12] MEDS: ELIQUIS PO SCH ×2 (08:58→20:58)
[2019-10-12] MEDS: VITAMIN B-12 PO SCH (08:58)
[2019-10-12] MEDS: CORDARONE PO SCH (08:58)
[2019-10-12] MEDS: ARIMIDEX PO SCH (08:58)
[2019-10-12 09:16] LABS: ALB/GLOB RATIO 0.9; ALBUMIN 3.2 g/dL (3.5-5.0); CALCIUM 9.4 mg/dL (8.8-10.2); CREATININE 1.1 mg/dL (0.5-0.9); POTASSIUM 4.4 mmol/L (3.5-5.1); TOTAL BILIRUBIN 0.32 mg/dL (0.20-1.00); TOTAL PROTEIN 6.9 g/dL (6.3-8.3)
--- NOTE | 2019-10-12 10:21 | PROGRESS NOTE ---
DATE: 10/12/2019 SUBJECTIVE: The patient is sitting in the bed. She is eating breakfast and feels quite well. She states she is improving in her strength. She did not think that she had physical therapy yesterday but, in her opinion, seems to be progressing with her overall strength. OBJECTIVE: Vital Signs: 98.4, 60, 18, 163/45, 92% saturated on room air. Physical Examination: The patient is morbidly obese. She is awake, alert, oriented, conversive, and appropriate. Cardiovascular: Regular rate and rhythm. No significant murmur. Lungs: Clear to auscultation bilaterally. Abdomen: Protuberant. Extremities: There is approximately 1+ lower extremity edema on both sides, which is symmetrical and essentially unchanged compared to previous exams, according to the record. Laboratory: White cell count 4.5, hemoglobin 10.4, hematocrit 34.4 (improved). BUN 17, creatinine 1.1. Blood sugar across the board is very well controlled. Microbiology shows the E. coli was growing from her urine from 10/09/2019 with no significant resistance pattern. ASSESSMENT AND PLAN: 1. The patient's profound weakness is likely multifactorial including comorbid disease, acute urinary tract infection, and morbid obesity. Dr. Sánchez and I discussed her persistent seroma at the catheter site when she had her aortic valve replacement. I am sure that the slow healing was complicated by infection, diabetes, and overall physical condition but hopefully, it seems to be improving at this point. 2. The patient had multiple falls at home and is an extreme fall risk due to weakness and obesity. A rehab bed is being sought for this. 3. The patient's failure to thrive is being addressed with a rehabilitation stay. The family is on board for this. 4. The patient had aortic stenosis with a catheter aortic valve replacement. She had persistent seroma as mentioned above. 5. The patient's right groin seroma has been improved and had a slight bit of drainage. She made no complaints about this today. 6. Urinary tract infection with Escherichia coli. No significant resistance pattern. 7. Ischemic heart disease, known. 8. Congestive heart failure, known and stable at the present time. 9. The remainder of the patient's other medical problems are stable and well documented in the record. cc: MD Anthony Mcduffie MD
[2019-10-12] MEDS: KLONOPIN PO SCH (20:57)
[2019-10-12] MEDS: ROCEPHIN 1 GM in NS 50 ML IV SCH (20:58)
[2019-10-13] MEDS: HUMALOG SUBQ SCH ×4 (06:07→22:30)
[2019-10-13] MEDS: SYNTHROID PO SCH (06:14)
[2019-10-13] MEDS: VITAMIN D PO SCH (08:19)
[2019-10-13] MEDS: FOLIC ACID PO SCH (08:19)
[2019-10-13] MEDS: AMARYL PO SCH (08:19)
[2019-10-13] MEDS: NORVASC PO SCH ×2 (08:20→21:21)
[2019-10-13] MEDS: IMDUR PO SCH (08:20)
[2019-10-13] MEDS: PRISTIQ ER PO SCH (08:20)
[2019-10-13] MEDS: COLACE PO SCH ×2 (08:20→21:21)
[2019-10-13] MEDS: CORDARONE PO SCH (08:20)
[2019-10-13] MEDS: PRINIVIL PO SCH ×2 (08:20→21:21)
[2019-10-13] MEDS: COREG PO SCH ×2 (08:20→21:21)
[2019-10-13] MEDS: ELIQUIS PO SCH ×2 (08:20→21:21)
[2019-10-13] MEDS: VITAMIN B-12 PO SCH (08:21)
[2019-10-13] MEDS: FERROUS SULFATE PO SCH (08:21)
[2019-10-13] MEDS: ARIMIDEX PO SCH (08:21)
[2019-10-13] MEDS: ASPIRIN EC PO SCH (08:21)
[2019-10-13] MEDS: KLONOPIN PO SCH (21:21)
[2019-10-13] MEDS: MACROBID PO SCH (21:21)
[2019-10-14] MEDS: SYNTHROID PO SCH (06:38)
[2019-10-14] MEDS: HUMALOG SUBQ SCH (06:38)
[2019-10-14 08:47] VITALS: BP 170/45
--- NOTE | 2019-10-14 09:01 | Diag Imaging Result Doc PS360 ---
EXAM: CHEST-PORTABLE INDICATION: for rehab placement TECHNIQUE: One view COMPARISON: 08/09/2019 FINDINGS: The lungs are grossly clear. There is no discrete pleural fluid collection or pneumothorax. There is a stable pacemaker and evidence of prior valve replacement. The cardiomediastinal silhouette and central vasculature are unremarkable, otherwise. IMPRESSION: No evidence of acute pathology by plain radiograph. Electronically signed by Yehuda Vergara 10/14/2019 8:58 AM
[2019-10-14] MEDS: VITAMIN B-12 PO SCH (10:00)
[2019-10-14] MEDS: AMARYL PO SCH (10:00)
[2019-10-14] MEDS: ARIMIDEX PO SCH (10:00)
[2019-10-14] MEDS: VITAMIN D PO SCH (10:00)
[2019-10-14] MEDS: IMDUR PO SCH (10:01)
[2019-10-14] MEDS: CORDARONE PO SCH (10:01)
[2019-10-14] MEDS: MACROBID PO SCH (10:01)
[2019-10-14] MEDS: ELIQUIS PO SCH (10:01)
[2019-10-14] MEDS: ASPIRIN EC PO SCH (10:01)
[2019-10-14] MEDS: PRISTIQ ER PO SCH (10:01)
[2019-10-14] MEDS: FOLIC ACID PO SCH (10:01)
[2019-10-14] MEDS: PRINIVIL PO SCH (10:02)
[2019-10-14] MEDS: COREG PO SCH (10:02)
[2019-10-14] MEDS: FERROUS SULFATE PO SCH (10:02)
[2019-10-14] MEDS: NORVASC PO SCH (10:02)
[2019-10-14] MEDS: COLACE PO SCH (10:05)
--- NOTE | 2019-10-14 11:33 | DISCHARGE SUMMARY ---
ADMISSION DATE: 10/09/2019 DISCHARGE DATE: 10/14/2019 ADMISSION DIAGNOSIS: Profound weakness. DISCHARGE DIAGNOSES: 1. Profound weakness, slowly improving. 2. Multiple falls/extreme fall risk, persistent. 3. Failure to thrive, slightly improved. 4. Aortic stenosis, status post transcatheter aortic valve replacement (TAVR) intervention. 5. Right groin seroma secondary to transcatheter aortic valve replacement intervention, very slowly improving. 6. Urinary tract infection secondary to Escherichia coli. 7. Urinary incontinence, present on arrival. 8. Ischemic heart disease, present on arrival. 9. Congestive heart failure, present on arrival. 10. Anxiety/depression, present on arrival. 11. Hypertension, present on arrival. 12. Hyperlipidemia, present on arrival. 13. Hypoxemia, present on arrival. 14. Advanced osteoarthritis, present on arrival. 15. Morbid obesity, present on arrival. 16. Hypothyroidism, present on arrival. CONSULTATIONS: None. PROCEDURES: 1. X-ray of the left lower extremity on 10/09/2019 revealed osteoarthritis of the knee. 2. X-ray of the left foot on 10/09/2019 revealed no evidence of fracture or dislocation. 3. Chest x-ray was performed on 10/14/2019 which revealed no evidence of acute pathology by plain radiograph. 4. Urine culture revealed a pansensitive Escherichia coli. HISTORY AND PHYSICAL EXAMINATION: See admit note. PHYSICAL EXAMINATION PRIOR TO DISCHARGE: Vital Signs: Temperature 98.8 degrees, heart rate 59, respirations 18, blood pressure is 170/45. General: Chronically ill appearing, no acute distress. Cardiovascular: Regular rate and rhythm. No significant murmurs, rubs, or gallops. Pulmonary: Clear to auscultation bilaterally. Abdomen: Soft, nontender, nondistended. Positive bowel sounds. Extremities: Moves all extremities well. No significant clubbing, cyanosis, or edema. Dermatologic: Evaluation reveals no evidence of rash. LABORATORY DATA PRIOR TO DISCHARGE.: None. HOSPITAL COURSE: The patient was admitted as per history and physical examination. Hospital course per condition is as follows: 1. Profound weakness: Upon admission, the patient was noted to have profound weakness. She was unable to assist with transfers while at home. Because of this, as well as progression of her overall condition, inpatient treatment was felt most appropriate. While hospitalized, the patient was treated with physical therapy. She will be discharged for rehabilitation with the goal of regaining ability to transfer safely while at home. If we are unable to achieve this, further intervention, including assisted living versus skilled nursing placement, will be warranted. 2. Multiple falls/extreme fall risk: There is no evidence for fracture per x-rays. Once again, this likely is a consequence of her profound weakness. Physical therapy was initiated while in the hospital. We will continue physical therapy at rehabilitation. 3. Failure to thrive: This is a consequence of above. The patient's overall condition was quickly declining while at home. With inpatient intervention and treatment of her above- mentioned conditions and urinary tract infection, stability was achieved. We will discharge the patient to rehabilitate for a close followup. At this point, I anticipate she will require further assistance once out of rehab, possibly skilled nursing or assisted living. 4. Aortic stenosis: The patient is status post TAVR intervention. The patient tolerated the procedure quite well. Unfortunately, she developed a chronic seroma thereafter as described below. She is euvolemic on examination today. 5. Right groin seroma: The patient has had this for several months. She recently had a wound VAC discontinued per her vascular surgeon. Recommendations for wound care was made by her vascular surgeon and will need to be continued at rehabilitation. We will consult wound therapy as well as defer further management to her vascular surgeon. Prior to discharge, the patient's Ye catheter was replaced, as I am concerned she will have difficulty healing this wound with the dampness associated with her urinary incontinence. 6. Urinary tract infection: The patient's urine grew Escherichia coli. This was pansensitive. She was treated with Rocephin while hospitalized. We will transition the patient to 5 additional days of Macrobid as an outpatient. We will follow this as well. 7. Urinary incontinence: This is a significant issue, especially in the setting of a right groin seroma/open wound. Because of the risk of contamination of this wound, it was felt that continuing her Ye catheter was most appropriate. Once her seroma wound has improved/resolved, we will plan to discontinue her Ye catheter and consider urology followup. The patient may be a candidate for a pessary. 8. Ischemic heart disease: The patient has longstanding disease. She was treated with optimum medical management while hospitalized. She remained asymptomatic. 9. Congestive heart failure: The patient was continued on her home medications while hospitalized. She remained euvolemic. We will follow this as an outpatient as well. 10. Depression/anxiety: This is largely compounded by her multiple medical conditions and her inability to ambulate. She is currently being treated present with Pristiq, clonazepam, and as needed Xanax. We will continue each of these. I anticipate should she regained some of her mobility, this will also improve. 11. Hypertension: The patient's blood pressure has been labile while hospitalized. Her amlodipine was increased to twice daily while hospitalized. We will continue her current regimen and follow this closely as an outpatient as well. 12. Hyperlipidemia: Unfortunately, the patient is unable tolerate statin intervention. She was treated with dietary modification while hospitalized. We will continue to follow this. 13. Hypoxemia: The patient was maintained on oxygen per protocol while hospitalized. She uses oxygen at bedtime at home. 14. Advanced osteoarthritis: This is compounding her rehabilitation potential. We will continue symptomatic management. As above, we will encourage physical therapy while at rehab. 15. Morbid obesity: This also was compounding her risk of rehabilitation. We will continue to encourage a healthy diet. 16. Hypothyroidism: The patient was continued on replacement while hospitalized. DISCHARGE CONDITION: Stable. DISPOSITION: Discharged to rehabilitation. MEDICATIONS: 1. Acetaminophen 650 mg every 6 hours as needed. 2. Amiodarone 200 mg daily. 3. Amlodipine 5 mg twice daily. 4. Anastrozole 1 mg daily. 5. Eliquis 5 mg twice daily. 6. Aspirin 81 mg daily. 7. Carvedilol 12.5 mg twice daily. 8. Vitamin D3 at 2000 units daily. 9. Vitamin B12 at 1000 mcg daily. 10. Pristiq 100 mg daily. 11. Colace 100 mg twice daily. 12. Iron sulfate 325 mg daily. 13. Folic acid 1 tablet daily. 14. Lasix 40 mg daily as needed for lower extremity edema. 15. Glimepiride 4 mg daily. 16. Imdur 30 mg daily. 17. Levothyroxine 250 mcg daily. 18. Lisinopril 20 mg twice daily. 19. Macrobid twice daily for an additional 5 days. 20. MiraLAX 17 grams in 8 ounces of juice daily as needed. 21. Tramadol 50 mg twice daily as needed. 22. Alprazolam 0.25 mg every 6 hours as needed. 23. Clonazepam 0.5 mg at bedtime. FOLLOWUP: The patient is to follow up with me upon discharge from rehabilitation. The patient is to follow up with her vascular surgeon as arranged. cc: Anthony Sánchez MD
== END 2019-10-14 16:11 | DRG 690 ==
LOC: SUPCPDRO → ED 13:42 → 3N 20:14
PROVIDERS: ADMIT Internal Medicine; ATTEND Internal Medicine